=== PATIENT | female | born 1985 | race Caucasian/White ===

== ENCOUNTER 2016-08-22 09:32 | Emergency (ER) | payer OTHER ==
--- NOTE | 2016-08-22 10:35 | ED.PDOC ---
History of Present Illness - General Chief Complaint: Respiratory Problem Time Seen by Provider: 08/22/16 10:28 Source: patient Exam Limitations: no limitations Additional Information: 3 wks NASSAL CONGESTION. BEEN URGENT CARE - STEROID, ABX. FACIAL AND R EAR PAIN. - History of Present Illness Cough Quality/Degree: moderate Possible Cause: illness exposure Improving Factors: nothing Worsening Factors: nothing Allergies/Adverse Reactions: Allergies NO KNOWN ALLERGY Allergy (Verified 04/09/16 20:39) Home Medications: Ambulatory Orders Cephalexin Monohydrate [Keflex] 500 mg PO Q8H #30 cap 04/09/16 predniSONE [Prednisone] 20 mg PO DAILY #3 tab 04/09/16 Amoxicillin & Pot Clavulanate [Augmentin] 875 mg PO BID #20 tab 08/22/16 Methylprednisolone [Medrol Dose Roman] 4 mg PO DAILY #1 tab 08/22/16 Review of Systems - Review of Systems Constitutional: Denies: chills, fever, malaise, weakness EENTM: States: ear pain, nose congestion. Denies: eye pain, ear discharge, throat pain Respiratory: States: cough. Denies: short of breath, wheezing Cardiology: States: no symptoms reported Gastrointestinal/Abdominal: States: no symptoms reported Genitourinary: States: no symptoms reported Musculoskeletal: States: no symptoms reported Skin: States: no symptoms reported Neurological: States: no symptoms reported Endocrine: States: no symptoms reported Hematologic/Lymphatic: States: no symptoms reported All other Systems: Reviewed and Negative Past Medical History (General) - Patient Medical History Hx Seizures: No Hx Stroke: No Hx Dementia: No Hx Asthma: No Hx of COPD: No Hx Cardiac Disorders: No Hx Congestive Heart Failure: No Hx Pacemaker: No Hx Hypertension: No Hx Thyroid Disease: No Hx Diabetes: No Hx Gastroesophageal Reflux: No Hx Renal Disease: No Hx Cancer: No Hx of HIV: No Hx Hepatitis C: No Hx MRSA: No - Vaccination History Hx Tetanus, Diphtheria Vaccination: No Hx Influenza Vaccination: No Hx Pneumococcal Vaccination: No - Social History Hx Tobacco Use: No Hx Chewing Tobacco Use: No Hx Alcohol Use: No Hx Substance Use: No Hx Substance Use Treatment: No Hx Depression: No Hx Physical Abuse: No Hx Emotional Abuse: No Hx Suspected Abuse: No - Female History Patient : No Family Medical History - Family History Mother Family History: No Known Living Status: Still Living Hx Family Hypertension: Yes Physical Exam - Physical Exam General Appearance: Alert, Ill Appearing Eye Exam: bilateral normal ENT Exam: pharynx normal, nasal congestion, TM bulging, TM red Neck: non-tender, full range of motion, supple Respiratory: chest non-tender, lungs clear, normal breath sounds, no respiratory distress Cardiovascular/Chest: normal peripheral pulses, regular rate, rhythm, no JVD, no murmur Gastrointestinal/Abdominal: normal bowel sounds, non tender, soft Extremity: normal range of motion, normal inspection 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 RX'D AUGMENTIN, MEDROL DOSE PACK. 08/22/16 10:49 Departure - Departure Clinical Impression: Otitis media, Rhinitis, Cough Disposition: Discharge to Home or Self Care Condition: Good Departure Forms: ED Discharge - Pt. Copy, Patient Portal Self Enrollment Instructions: Middle Ear Infection Diet: resume usual diet Activity: increase activity as tolerated Prescriptions: Amoxicillin & Pot Clavulanate [Augmentin] 875 mg PO BID #20 tab Methylprednisolone [Medrol Dose Roman] 4 mg PO DAILY #1 tab Home Medications: Ambulatory Orders Cephalexin Monohydrate [Keflex] 500 mg PO Q8H #30 cap 04/09/16 predniSONE [Prednisone] 20 mg PO DAILY #3 tab 04/09/16 Amoxicillin & Pot Clavulanate [Augmentin] 875 mg PO BID #20 tab 08/22/16 Methylprednisolone [Medrol Dose Roman] 4 mg PO DAILY #1 tab 08/22/16 Additional Instructions: our control pill may be less effective so please use a second form of control for the next 10 days while on Augmentin. Please use Michelet Med saline nasal/sinus rinse, then flonase spray. Zinc lozenges may also be helpful. Plenty of rest, fluids, vitamin C, and regular hand washing. I hope you feel better soon.
[2016-08-22] MEDS ORDERED: methylPREDNISolone ACETATE 80 MG/ML VIAL IM ONE (10:45)
[2016-08-22] MEDS ORDERED: cefTRIAXone SODIUM 1 GM VIAL IM ONE (10:45)
[2016-08-22 11:37] VITALS: TEMP 98.6
[2016-08-22 11:51] VITALS: BP 97/64
[2016-08-22 11:53] VITALS: O2SAT 98
== END 2016-08-22 11:45 | disposition home or self-care (01) ==
LOC: ER 09:32
DX: J31.0 Chronic rhinitis (principal); H66.90 Otitis media, unspecified, unspecified ear
CPT/HCPCS: J0696; J1030

== ENCOUNTER 2016-09-20 12:04 | Emergency (ER) | payer OTHER ==
[2016-09-20 13:05] VITALS: TEMP 98.4; O2SAT 97
[2016-09-20] MEDS ORDERED: KETOROLAC TROMETHAMINE INJ 60 MG/2 ML VIAL IM ONE (13:39)
[2016-09-20] MEDS ORDERED: SULFA/TRIMETH 800/160 (DS) TAB 1 EA TAB PO ONE (13:40)
[2016-09-20] MEDS ORDERED: HYDROcodone 10MG/APAP 325MG 1 EA TAB PO ONE (13:40)
--- NOTE | 2016-09-20 14:27 | ED.PDOC ---
History of Present Illness - General Chief Complaint: Skin/Abrasion/Tear Stated Complaint: vaginal cyst Time Seen by Provider: 09/20/16 13:39 Source: patient Exam Limitations: no limitations - History of Present Illness Initial Comments: PT REPORTS A 3 DAY HISTORY OF A PROGRESSIVELY ENLARGING MASS ON HER LEFT LABIA MAJORA. PT DENIES DRAINAGE, HOWEVER REPORTS PAIN. Severity: moderate Location: genitalia Improving Factors: immobilization Worsening Factors: movement Allergies/Adverse Reactions: Allergies NO KNOWN ALLERGY Allergy (Verified 04/09/16 20:39) Home Medications: Ambulatory Orders Cephalexin Monohydrate [Keflex] 500 mg PO Q8H #30 cap 04/09/16 predniSONE [Prednisone] 20 mg PO DAILY #3 tab 04/09/16 Amoxicillin & Pot Clavulanate [Augmentin] 875 mg PO BID #20 tab 08/22/16 Methylprednisolone [Medrol Dose Roman] 4 mg PO DAILY #1 tab 08/22/16 Acetaminophen W/ Codeine [Tylenol W/ CODEINE #3] 1 ea PO Q4HR PRN #24 09/20/16 Ibuprofen 800 mg PO Q8HR PRN #30 tab 09/20/16 Sulfamethoxazole-Trimethoprim [Bactrim Ds 800-160 mg] 2 tab PO BID #14 tab 09/20 Review of Systems - Review of Systems Constitutional: Denies: chills, fever Gastrointestinal/Abdominal: Denies: abdominal pain, nausea, vomiting Genitourinary: States: see HPI, pain. Denies: discharge, dysuria Skin: States: see HPI, lesions, lumps Past Medical History (General) - Patient Medical History Hx Seizures: No Hx Stroke: No Hx Dementia: No Hx Asthma: No Hx of COPD: No Hx Cardiac Disorders: No Hx Congestive Heart Failure: No Hx Pacemaker: No Hx Hypertension: No Hx Thyroid Disease: No Hx Diabetes: No Hx Gastroesophageal Reflux: No Hx Renal Disease: No Hx Cancer: No Hx of HIV: No Hx Hepatitis C: No Hx MRSA: No - Vaccination History Hx Tetanus, Diphtheria Vaccination: No Hx Influenza Vaccination: No Hx Pneumococcal Vaccination: No - Social History Hx Tobacco Use: No Hx Chewing Tobacco Use: No Hx Alcohol Use: No Hx Substance Use: No Hx Substance Use Treatment: No Hx Depression: No Hx Physical Abuse: No Hx Emotional Abuse: No Hx Suspected Abuse: No - Female History Patient : No - Triage Comment ED Triage Comment: Pt states she has a cyst next to her vargina that started 4 days ago and getting worse and more painful Family Medical History - Family History Mother Family History: No Known Living Status: Still Living Hx Family Hypertension: Yes Physical Exam - Physical Exam General Appearance: Alert, No apparent distress Skin Exam: other - TENDER FIRM 1CM X 1CM NODULE LOCATED ON THE UPPER ASPECT OF THE LABIA MAJORA, NO FLUCTUANCE, NO PURULENT DRAINAGE. Progress - Progress Progress: 09/20/16 14:28 PT PRESENTS WITH EARLY BOIL TO LEFT LABIA, NOT CURRENTLY LARGE ENOUGH FOR I&D. WILL PLACE PT ON BACTRIM AND INSTRUCT PT TO RETURN IF MASS CONTINUES TO ENLARGE. Departure - Departure Clinical Impression: Abscess of left genital labia Time of Disposition: 14:30 Disposition: Discharge to Home or Self Care Condition: Good Departure Forms: ED Discharge - Pt. Copy, Patient Portal Self Enrollment Instructions: DI for Boils Diet: resume usual diet Prescriptions: Acetaminophen W/ Codeine [Tylenol W/ CODEINE #3] 1 ea PO Q4HR PRN #24 PRN Reason: Pain Ibuprofen 800 mg PO Q8HR PRN #30 tab PRN Reason: Pain Sulfamethoxazole-Trimethoprim [Bactrim Ds 800-160 mg] 2 tab PO BID #14 tab Home Medications: Ambulatory Orders Cephalexin Monohydrate [Keflex] 500 mg PO Q8H #30 cap 04/09/16 predniSONE [Prednisone] 20 mg PO DAILY #3 tab 04/09/16 Amoxicillin & Pot Clavulanate [Augmentin] 875 mg PO BID #20 tab 08/22/16 Methylprednisolone [Medrol Dose Roman] 4 mg PO DAILY #1 tab 08/22/16 Acetaminophen W/ Codeine [Tylenol W/ CODEINE #3] 1 ea PO Q4HR PRN #24 09/20/16 Ibuprofen 800 mg PO Q8HR PRN #30 tab 09/20/16 Sulfamethoxazole-Trimethoprim [Bactrim Ds 800-160 mg] 2 tab PO BID #14 tab 09/20
[2016-09-20 14:45] VITALS: BP 103/71
== END 2016-09-20 14:45 | disposition home or self-care (01) ==
LOC: ER 12:04
DX: N76.4 Abscess of vulva (principal)

== ENCOUNTER 2016-12-10 19:59 | Emergency (ER) | payer OTHER ==
[2016-12-10] MEDS ORDERED: IPRATROPIUM/ALBUTEROL 3 ML VIAL NEB ONE (20:27)
[2016-12-10 20:37] VITALS: TEMP 99.4
--- NOTE | 2016-12-10 21:02 | RAD ---
2-VIEW CHEST X-RAY. DATE: 12/10/2016 8:28 PM CDT INDICATION: Right lower pleurisy TECHNIQUE: Frontal and lateral views of the chest were performed. COMPARISON:None FINDINGS: There are increased bilateral perihilar interstitial opacities with tiny alveolar opacities. No pneumothorax effusions. No focal airspace disease. The cardiomediastinal silhouette is within normal limits. The osseous structure show no significant finding. The visualized abdomen is unremarkable. IMPRESSION: Increased interstitial opacities with very small alveolar opacities may represent an infectious process or other etiologies such as sarcoidosis. Recommend follow-up with chest x-ray and/or correlation with CT chest. Electronically signed by: Fletcher Olivia MD 12/10/2016 9:02 PM CDT
[2016-12-10 21:40] VITALS: BP 119/77
--- NOTE | 2016-12-10 21:50 | ED.PDOC ---
History of Present Illness - General Chief Complaint: Abdominal Pain Stated Complaint: rib pain to rt side Time Seen by Provider: 12/10/16 20:00 Source: patient Exam Limitations: no limitations - History of Present Illness Initial Comments: the patient is a 31-year-old female presenting to the emergency room secondary to the acute onset of pleuritic pain to the right lower lung field approximately 2-1/2 hours prior to arrival. She has had several episodes of pleurisy secondary to a rib fracture in that area in the past. However in the past the episodes were much more brief only lasting a minute or 2. She was feeling fine before. She is not having any productive cough. No fever. No chest pain elsewhere. No real shortness of breath. Timing/Duration: 1-3 hours Severity: moderate Improving Factors: nothing Worsening Factors: movement Associated Symptoms: denies symptoms Allergies/Adverse Reactions: Allergies NO KNOWN ALLERGY Allergy (Verified 12/10/16 20:38) Home Medications: Ambulatory Orders Fexofenadine-Pseudoephedrine [Isi-D 12 Hour Allergy 60-120 mg] 1 tab PO PRN 12/10/16 Review of Systems - Review of Systems Constitutional: States: no symptoms reported EENTM: States: no symptoms reported Respiratory: States: no symptoms reported Cardiology: States: chest pain Gastrointestinal/Abdominal: States: no symptoms reported Genitourinary: States: no symptoms reported Musculoskeletal: States: no symptoms reported Skin: States: no symptoms reported Neurological: States: no symptoms reported Endocrine: States: no symptoms reported All other Systems: No Change from Baseline Past Medical History (General) - Patient Medical History Hx Seizures: No Hx Stroke: No Hx Dementia: No Hx Asthma: No Hx of COPD: No Hx Cardiac Disorders: No Hx Congestive Heart Failure: No Hx Pacemaker: No Hx Hypertension: No Hx Thyroid Disease: No Hx Diabetes: No Hx Gastroesophageal Reflux: No Hx Renal Disease: No Hx Cancer: No Hx of HIV: No Hx Hepatitis C: No Hx MRSA: No Surgical History: other - Vaccination History Hx Tetanus, Diphtheria Vaccination: Yes - 2013 Hx Influenza Vaccination: No Hx Pneumococcal Vaccination: No - Social History Hx Tobacco Use: No Hx Chewing Tobacco Use: No Hx Alcohol Use: No Hx Substance Use: No Hx Substance Use Treatment: No Hx Depression: No Hx Physical Abuse: No Hx Emotional Abuse: No Hx Suspected Abuse: No - Female History Patient : No Family Medical History - Family History Mother Family History: No Known Living Status: Still Living Hx Family Hypertension: Yes Physical Exam - Physical Exam General Appearance: Alert, No apparent distress Eye Exam: bilateral normal Ears, Nose, Throat: normal ENT inspection, normal pharynx Neck: non-tender, full range of motion, supple Respiratory: chest non-tender, lungs clear, normal breath sounds, no respiratory distress, no accessory muscle use Cardiovascular/Chest: normal peripheral pulses, regular rate, rhythm, no edema Peripheral Pulses: radial,right: 2+, radial,left: 2+ Gastrointestinal/Abdominal: non tender, soft Rectal Exam: deferred Back Exam: normal inspection, no CVA tenderness, no vertebral tenderness Extremity: normal range of motion, non-tender, normal inspection, no pedal edema , normal capillary refill Neurologic: alert, normal mood/affect, oriented x 3 Skin Exam: normal color Comments: Vital Signs - 24 hr 12/10/16 12/10/16 12/10/16 20:30 20:39 21:38 Temperature 99.4 F Pulse Rate [ 110 H 103 H left] Respiratory 18 20 20 Rate Blood Pressure 111/79 119/77 [left] O2 Sat by Pulse 97 96 Oximetry Progress - Progress Progress: 12/10/16 21:49 the patient is a 31-year-old female presenting to the emergency room secondary to pleuritic chest pain on the right. It has been present for several hours upon arrival. The patient received a breathing treatment and the pain relieved shortly after. The patient needs to do deep breathing exercises while on her daily commute to help prevent further episodes. She can use an incentive spirometer if she wishes. Chest x-ray did not show any evidence of any large pneumonia, pneumothorax or fluid overload however it did show some small interstitial changes. It is recommended that she have another repeat chest x-ray in 1-2 months. ER warnings were given for any acute worsening. Departure - Departure Clinical Impression: Pleurisy Disposition: Discharge to Home or Self Care Condition: Good Departure Forms: ED Discharge - Pt. Copy, Patient Portal Self Enrollment Instructions: DI for Pleurisy Diet: regular diet Activity: increase activity as tolerated Home Medications: Ambulatory Orders Fexofenadine-Pseudoephedrine [Isi-D 12 Hour Allergy 60-120 mg] 1 tab PO PRN 12/10/16 Additional Instructions: the patient is a 31-year-old female presenting to the emergency room secondary to pleuritic chest pain on the right. It has been present for several hours upon arrival. The patient received a breathing treatment and the pain relieved shortly after. The patient needs to do deep breathing exercises while on her daily commute to help prevent further episodes. She can use an incentive spirometer if she wishes. Chest x-ray did not show any evidence of any large pneumonia, pneumothorax or fluid overload however it did show some small interstitial changes. It is recommended that she have another repeat chest x-ray in 1-2 months. ER warnings were given for any acute worsening.
[2016-12-11 00:16] VITALS: O2SAT 98
== END 2016-12-10 22:03 | disposition home or self-care (01) ==
LOC: ER 19:59
DX: R09.1 Pleurisy (principal)
CPT/HCPCS: 71020; 94640; J7620

== ENCOUNTER 2016-12-16 04:44 | Emergency (ER) | payer OTHER ==
[2016-12-16 05:00] VITALS: TEMP 98
--- NOTE | 2016-12-16 05:35 | ED.PDOC ---
History of Present Illness - General Source: patient Exam Limitations: no limitations Additional Information: R LOWER THORAX PAIN. ONSET LAST PM. SPONTANEOUS. SHARP, NON RADIATING. HAS HAD ONE TIME BEFORE. NO TRAUMA - History of Present Illness Timing/Duration: other - LAST PM Severity: moderate Improving Factors: nothing Worsening Factors: other - DEEP BREATHING <Jame Verduzco - Last Filed: 12/16/16 07:00> <Brett Cr - Last Filed: 12/16/16 07:34> - General Chief Complaint: General Stated Complaint: right side "pleurisy" pain Time Seen by Provider: 12/16/16 05:27 - History of Present Illness Allergies/Adverse Reactions: Allergies NO KNOWN ALLERGY Allergy (Verified 12/16/16 05:00) Home Medications: Ambulatory Orders Fexofenadine-Pseudoephedrine [Isi-D 12 Hour Allergy 60-120 mg] 1 tab PO PRN 12/10/16 Ibuprofen 800 mg PO TID PRN #30 tab 12/16/16 Review of Systems - Review of Systems Constitutional: Denies: chills, fever EENTM: States: no symptoms reported Respiratory: States: short of breath. Denies: cough, orthopnea, stridor, wheezing Cardiology: States: chest pain. Denies: palpitations, syncope Gastrointestinal/Abdominal: Denies: abdominal pain, nausea, vomiting Genitourinary: States: no symptoms reported Musculoskeletal: Denies: back pain, neck pain Skin: States: no symptoms reported Neurological: States: no symptoms reported Hematologic/Lymphatic: States: no symptoms reported <Jame Verduzco - Last Filed: 12/16/16 07:00> Past Medical History (General) - Patient Medical History Hx Seizures: No Hx Stroke: No Hx Dementia: No Hx Asthma: No Hx of COPD: No Hx Cardiac Disorders: No Hx Congestive Heart Failure: No Hx Pacemaker: No Hx Hypertension: No Hx Thyroid Disease: No Hx Diabetes: No Hx Gastroesophageal Reflux: No Hx Renal Disease: No Hx Cancer: No Hx of HIV: No Hx Hepatitis C: No Hx MRSA: No Surgical History: other - Vaccination History Hx Tetanus, Diphtheria Vaccination: Yes - 2013 Hx Influenza Vaccination: No Hx Pneumococcal Vaccination: No Immunizations Up to Date: Yes - Social History Hx Tobacco Use: No Hx Chewing Tobacco Use: No Hx Alcohol Use: No Hx Substance Use: No Hx Substance Use Treatment: No Hx Depression: No Feels Threatened In Home Enviroment: No Feels Threatened In a Relationship: No Hx Physical Abuse: No Hx Emotional Abuse: No Hx Suspected Abuse: No - Female History Patient is a Female of Child Bearing Age (10 -59 yrs old): Yes Patient : No <Jame Verduzco - Last Filed: 12/16/16 07:00> Family Medical History - Family History Mother Family History: No Known Living Status: Still Living Hx Family Hypertension: Yes <Jame Verduzco - Last Filed: 12/16/16 07:00> Physical Exam - Physical Exam General Appearance: Well Developed, Well Nourished, Other - OBESE, MILD TO MOD DISTRESS Eye Exam: bilateral normal Ears, Nose, Throat: hearing grossly normal, normal ENT inspection Neck: non-tender, supple Respiratory: lungs clear, normal breath sounds, other - TACHYPNIC Cardiovascular/Chest: no murmur, tachycardia Gastrointestinal/Abdominal: normal bowel sounds, non tender, soft, no organomegaly Back Exam: normal inspection, no vertebral tenderness Extremity: normal range of motion, non-tender, normal inspection Neurologic: alert, normal mood/affect Skin Exam: normal color, warm/dry Lymphatic: no adenopathy <Jame Verduzco - Last Filed: 12/16/16 07:00> Progress - EKG/XRAY/CT EKG: Sinus - RATE 100, NL AXIS, NL INTERVALS, NO ST-T WAVE CHANGES, NAIP, NO S1, Q3,T3 <Jame Verduzco - Last Filed: 12/16/16 07:00> - Results/Orders Results/Orders: D-DIMER WAS ELEVATED BUT CTA NEG FOR PE. NO INFECTIOUS CONSOLIDATION. TINY PLEURAL EFFUSIONS. DX CONFIRMED PLEURISY. EKG NSR. CBC AND CMP UNREMARKABLE. <Brett Cr - Last Filed: 12/16/16 07:34> Departure <Jame Verduzco - Last Filed: 12/16/16 07:00> - Departure Diet: resume usual diet Activity: walking as tolerated <Brett Cr - Last Filed: 12/16/16 07:34> - Departure Clinical Impression: Pleurisy with effusion Disposition: Discharge to Home or Self Care Condition: Good Departure Forms: ED Discharge - Pt. Copy, Patient Portal Self Enrollment Instructions: DI for Pleurisy Prescriptions: Ibuprofen 800 mg PO TID PRN #30 tab PRN Reason: Chest Pain Home Medications: Ambulatory Orders Fexofenadine-Pseudoephedrine [Isi-D 12 Hour Allergy 60-120 mg] 1 tab PO PRN 12/10/16 Ibuprofen 800 mg PO TID PRN #30 tab 12/16/16 Additional Instructions: Please follow-up with your regular doctor if the discomfort is persisting despite taking the high dose ibuprofen.
[2016-12-16] MEDS ORDERED: KETOROLAC TROMETHAMINE INJ 30 MG/ML VIAL IV ONE (05:43)
--- NOTE | 2016-12-16 07:12 | CT ---
Procedure: CT CHEST ANGIOGRAPHY WITH IV CONTRAST Exam Date: 12/16/2016 Ordering Provider: Jame Verduzco Clinical Indication: Chest pain TACHYCARDIC ELEVATED D DIMER Comparison: None Technique: Using a multislice scanner, sequential axial imaging was obtained in the thorax from the level of the thoracic inlet through the lung bases after intravenous contrast administration. The contrast bolus was timed to evaluate the pulmonary arteries for thrombus. MIP coronal and sagittal reformatted images were obtained. This exam was performed according to our departmental dose optimization program which includes use of automated exposure control, adjustment of the mA and/or kV according to patient size and/or use of iterative reconstruction technique. Findings: Exam is limited by respiratory motion artifact. Within these confines, there are no emboli in the main or lobar pulmonary arteries. The segmental and subsegmental pulmonary arteries are not adequately evaluated. Lungs and large airways: Central airways are patent. There is mild atelectasis in the dependent lower lobes. No focal lung consolidation. Mediastinum and claudio: No lymphadenopathy Pleura: Tiny bilateral pleural effusions. No pneumothorax. Heart and great vessels: Heart is not enlarged. No pericardial effusion. No aortic aneurysm or dissection. Chest wall, lower neck, axillae: No axillary lymphadenopathy. Upper abdomen: No acute abnormalities in the visualized upper abdomen. Bones: Nonacute IMPRESSION: 1. Exam is limited by respiratory motion artifact. Within these confines, there are no emboli in the main or lobar pulmonary arteries. The segmental and subsegmental pulmonary arteries are not adequately evaluated. 2. No evidence of aortic dissection or aneurysm. 3. Tiny bilateral pleural effusions. Electronically signed by: Ronnie Tomlinson MD 12/16/2016 7:11 AM CDT
[2016-12-16 07:56] VITALS: BP 97/65; O2SAT 95
== END 2016-12-16 07:40 | disposition home or self-care (01) ==
LOC: ER 04:44
DX: J90 Pleural effusion, not elsewhere classified (principal)
CPT/HCPCS: 36415; 71275; 80053; 85025; 85379; 93005; J1885

== ENCOUNTER 2017-02-07 20:34 | Emergency (ER) | payer OTHER ==
[2017-02-07 20:46] VITALS: BP 129/81; TEMP 99.1; O2SAT 98
--- NOTE | 2017-02-07 21:06 | ED.PDOC ---
History of Present Illness - General Chief Complaint: Bite: Animal/Insect/Human Stated Complaint: possible insect bite to lower rt leg Time Seen by Provider: 02/07/17 21:00 Source: patient, RN notes reviewed, Vital Signs reviewed Exam Limitations: no limitations - History of Present Illness Initial Comments: Patient with an itchy insect bite on her R lower leg. Today she noticed areas of redness beside the bite. No pain or warmth. Timing/Duration: changing over time - over past few days Severity: mild Improving Factors: nothing - She has not tried any medication or OTC anti-itch creams at home Worsening Factors: nothing Associated Symptoms: rash Allergies/Adverse Reactions: Allergies NO KNOWN ALLERGY Allergy (Verified 12/16/16 05:00) Home Medications: Ambulatory Orders Fexofenadine-Pseudoephedrine [Isi-D 12 Hour Allergy 60-120 mg] 1 tab PO PRN 12/10/16 Ibuprofen 800 mg PO TID PRN #30 tab 12/16/16 Review of Systems - Review of Systems Constitutional: States: no symptoms reported Respiratory: States: no symptoms reported Cardiology: States: no symptoms reported Musculoskeletal: States: no symptoms reported Skin: States: see HPI Neurological: States: no symptoms reported All other Systems: No Change from Baseline Past Medical History (General) - Patient Medical History Hx Seizures: No Hx Stroke: No Hx Dementia: No Hx Asthma: No Hx of COPD: No Hx Cardiac Disorders: No Hx Congestive Heart Failure: No Hx Pacemaker: No Hx Hypertension: No Hx Thyroid Disease: No Hx Diabetes: Yes - gestational Hx Gastroesophageal Reflux: No Hx Renal Disease: No Hx Cancer: No Hx of HIV: No Hx Hepatitis C: No Hx MRSA: No - Vaccination History Hx Tetanus, Diphtheria Vaccination: Yes Hx Influenza Vaccination: No Hx Pneumococcal Vaccination: No - Social History Hx Tobacco Use: No Hx Chewing Tobacco Use: No Hx Alcohol Use: No Hx Substance Use: No Hx Substance Use Treatment: No Hx Depression: No Hx Physical Abuse: No Hx Emotional Abuse: No Hx Suspected Abuse: No - Female History Patient is a Female of Child Bearing Age (10 -59 yrs old): Yes Patient : No Family Medical History - Family History Mother Family History: No Known Living Status: Still Living Hx Family Hypertension: Yes Physical Exam - Physical Exam General Appearance: Alert, Comfortable, No apparent distress, Well Developed, Well Groomed, Well Hydrated, Well Nourished Respiratory: no respiratory distress Extremity: normal range of motion, non-tender, no pedal edema, no calf tenderness Neurologic: alert, normal mood/affect, oriented x 3 Skin Exam: normal color - except R lower leg: small area of erythema, ~1cm with central scab. No induration, fluctuance or tenderness. On each side are linear areas of petechia that appear to be caused by trauma., warm/dry Departure - Departure Clinical Impression: Traumatic petechiae Time of Disposition: 21:08 Disposition: Discharge to Home or Self Care Condition: Good Departure Forms: ED Discharge - Pt. Copy, Patient Portal Self Enrollment Instructions: DI for Insect Bites and Stings Diet: resume usual diet Activity: increase activity as tolerated Referrals: Ozzie Aparicio MD [Primary Care Provider] - 1-2 Weeks Home Medications: Ambulatory Orders Fexofenadine-Pseudoephedrine [Isi-D 12 Hour Allergy 60-120 mg] 1 tab PO PRN 12/10/16 Ibuprofen 800 mg PO TID PRN #30 tab 12/16/16 Additional Instructions: OTC Zyrtec &/or Benadryl OTC anti-itch creams Ice area Stop scratching
== END 2017-02-07 21:13 | disposition home or self-care (01) ==
LOC: ER 20:34
DX: R23.3 Spontaneous ecchymoses (principal); Z86.32 Personal history of gestational diabetes

== ENCOUNTER → 2017-02-24 | Outpatient (CLI) | payer OTHER | END | disposition home or self-care (01) | LOC: GMA 11:11 | PROVIDERS: ATTEND Nurse Practitioner Acute Care | DX: M25.50 Pain in unspecified joint (principal) ==

== ENCOUNTER → 2017-03-10 | Outpatient (CLI) | payer OTHER | END | disposition home or self-care (01) | LOC: GMAJ 10:45 | PROVIDERS: ATTEND Family Medicine | DX: M25.50 Pain in unspecified joint (principal) ==

== ENCOUNTER → 2017-03-24 | Outpatient (CLI) | payer OTHER ==
--- NOTE | 2017-03-25 13:08 | MAM ---
EXAM DESCRIPTION: 3D Screening BILATERAL CLINICAL HISTORY: 31 yearsFemaleSCREENING. No complaints. Maternal grandmother and aunts with breast cancer. Premenopausal.. COMPARISON: Baseline study at this facility.. No prior reports available. TECHNIQUE: Bilateral CC and MLO projection full-field images, 3-D tomosynthesis digital mammographic technique. Also bilateral synthesized CC/ MLO full-field images. CAD not utilized. FINDINGS: The breast parenchymal density pattern is: Heterogeneously dense breast tissue, which may obscure small masses. No skin thickening or nipple retraction right breast axillary lymph nodes. Focal asymmetry in the posterior third of the left breast upper inner quadrant at the 1100 clock position, approximately 6.3 cm from the nipple.. No focal, stellate mass or density, , and no suspicious microcalcifications bilaterally. No focal asymmetry in the right breast. IMPRESSION: BI-RADS CATEGORY: 0 - INCOMPLETE- Need additional imaging evaluation. FOLLOW-UP: Recall for additional imaging: Targeted left breast ultrasound of the region of interest described in the findings. Written communication explaining the results and follow-up will be mailed to the patient and referring care provider. Electronically signed by: Jacky Durbin MD 03/25/2017 1:06 PM CDT
== END | disposition home or self-care (01) ==
LOC: MAMMO 07:59
PROVIDERS: ATTEND Family Medicine
DX: Z12.31 Encounter for screening mammogram for malignant neoplasm of breast (principal)
CPT/HCPCS: 77063; G0202

== ENCOUNTER → 2017-04-28 | Outpatient (CLI) | payer OTHER ==
--- NOTE | 2017-04-28 09:59 | US ---
EXAM DESCRIPTION: Breast,Left CLINICAL HISTORY: 32 [id number] COMPARISON: Digital 3-D screening tomosynthesis bilateral breasts 03/24/2017. TECHNIQUE: Transcutaneous scanning of the upper inner quadrant of the left breast utilizing two-dimensional and Doppler modes. Scanning performed by the petrography teacher and Dr. Durbin. FINDINGS: Well circumscribed hypoechoic mass with central echogenicity at the 1100 clock position of the left breast 6 cm from the nipple. Dimensions are 9.3 x 4.6 x 3.1 mm. No significant central vascularity. Parallel orientation and no posterior acoustic features. Consistent with a lymph node. Anechoic structure in a similar location with parallel orientation. Dimensions are 5.3 x 5.6 mm. Posterior acoustic enhancement. Nonvascular. Consistent with a cyst. No discrete solid mass or abnormal posterior acoustic attenuation. IMPRESSION: BI-RADS CATEGORY: 2 - BENIGN FINDINGS. FOLLOW UP: Return to routine digital bilateral mammographic screening, at age 40. The findings and the follow-up plan were reviewed in person with the patient after the examination. Written communication explaining the IMPRESSION and follow-up, will be mailed to the patient and referring health care provider. According to the [employer], yearly mammograms are recommended starting at age 40 and continuing as long as a woman is in good health. Any breast change noted on a breast self-exam should be reported promptly to the patient's healthcare provider. Breast MRI is recommended for women with an approximately 20-25% or greater lifetime risk of breast cancer, including women with a strong family history of breast or ovarian cancer and women who have been treated for Hodgkin's disease. A negative mammographic report should not delay tissue diagnosis in patients with significant clinical history or physical findings. Extremely dense breast tissue limits the sensitivity of digital mammography. Electronically signed by: Jacky Durbin MD 04/28/2017 9:58 AM CDT
== END | disposition home or self-care (01) ==
LOC: US 08:23
PROVIDERS: ATTEND Family Medicine
DX: R92.8 Other abnormal and inconclusive findings on diagnostic imaging of breast (principal); Z80.3 Family history of malignant neoplasm of breast

== ENCOUNTER 2018-04-27 22:57 | Emergency (ER) | payer OTHER ==
--- NOTE | 2018-04-27 23:35 | RAD ---
EXAM: Single view chest. INDICATION: Syncope. COMPARISON: Chest x-ray: 12/10/2016. FINDINGS: Cardiac silhouette: Unremarkable. Vero: Unremarkable. Lobar consolidation: None. Pleural effusion: None. Pneumothorax: None. Other: None. Bones: Unremarkable. Other: None. IMPRESSION: 1. No acute cardiopulmonary process. Electronically signed by: Trev Schulz MD 04/27/2018 11:34 PM CDT Workstation: [id number]
[2018-04-27 23:59] VITALS: O2SAT 100
--- NOTE | 2018-04-28 01:36 | ED.PDOC ---
History of Present Illness - General Chief Complaint: Syncope/Near Syncope Stated Complaint: fainted in shower Time Seen by Provider: 04/27/18 23:04 Source: patient, family Exam Limitations: no limitations - History of Present Illness Initial Comments: the patient is a 33-year-old female presenting to emergenncy room with her after having a syncopal episode after being in the shower for almost 30 minutes. She has not had a syncopal episode in a long time. She did feel like she was going to pass out beforehand. No evidence of any seizure activity. No recent health problems. She is feeling fine currently. She was unconscious for less than a minute. No injury. The patient is pleasant and cooperative. is here to corroborate the story. Timing/Duration: momentarily Severity: moderate Improving Factors: nothing Worsening Factors: nothing Associated Symptoms: denies symptoms Allergies/Adverse Reactions: Allergies NO KNOWN ALLERGY Allergy (Verified 04/27/18 23:05) Home Medications: Ambulatory Orders Ibuprofen 400 mg PO Q6HR PRN 04/27/18 Review of Systems - Review of Systems Constitutional: States: malaise EENTM: States: no symptoms reported Respiratory: States: no symptoms reported Cardiology: States: syncope Gastrointestinal/Abdominal: States: no symptoms reported Genitourinary: States: no symptoms reported Musculoskeletal: States: no symptoms reported Skin: States: no symptoms reported Neurological: States: no symptoms reported Endocrine: States: no symptoms reported All other Systems: No Change from Baseline Past Medical History (General) - Patient Medical History Hx Seizures: No Hx Stroke: No Hx Dementia: No Hx Asthma: No Hx of COPD: No Hx Cardiac Disorders: No Hx Congestive Heart Failure: No Hx Pacemaker: No Hx Hypertension: No Hx Thyroid Disease: No Hx Diabetes: Yes - gestational Hx Gastroesophageal Reflux: No Hx Renal Disease: No Hx Cancer: No Hx of HIV: No Hx Hepatitis C: No Hx MRSA: No Surgical History: other - Vaccination History Hx Tetanus, Diphtheria Vaccination: Yes Hx Influenza Vaccination: No Hx Pneumococcal Vaccination: No Immunizations Up to Date: No - Social History Hx Tobacco Use: No Hx Chewing Tobacco Use: No Hx Alcohol Use: No Hx Substance Use: No Hx Substance Use Treatment: No Hx Depression: No Feels Threatened In Home Enviroment: No Feels Threatened In a Relationship: No Hx Physical Abuse: No Hx Emotional Abuse: No Hx Suspected Abuse: No - Female History Patient is a Female of Child Bearing Age (10 -59 yrs old): Yes Patient : No - has had tubal ligation - Triage Comment ED Triage Comment: pt AAOX4, pale Family Medical History - Family History Mother Family History: No Known Living Status: Still Living Hx Family Hypertension: Yes Physical Exam - Physical Exam General Appearance: Alert, Comfortable, No apparent distress Eye Exam: bilateral normal Ears, Nose, Throat: hearing grossly normal, normal ENT inspection, normal pharynx Neck: full range of motion, supple, normal inspection Respiratory: lungs clear, normal breath sounds, no respiratory distress, no accessory muscle use Cardiovascular/Chest: normal peripheral pulses, regular rate, rhythm, no edema Peripheral Pulses: radial,right: 2+, radial,left: 2+, dorsalis pedis,right: 2+, dorsalis pedis,left: 2+ Gastrointestinal/Abdominal: non tender, soft Rectal Exam: deferred Back Exam: no CVA tenderness, no vertebral tenderness Extremity: normal range of motion, non-tender, normal inspection, no pedal edema , normal capillary refill 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, alert, normal mood/affect, oriented x 3 Skin Exam: normal color Comments: Vital Signs - 8 hr 04/27/18 04/27/18 04/27/18 23:05 23:10 23:57 Temperature 99.5 F Pulse Rate [ 98 H 88 83 pulse ox] Respiratory 18 18 18 Rate Blood Pressure 126/71 102/62 [left arm] O2 Sat by Pulse 99 99 Oximetry 04/27/18 04/27/18 23:58 23:59 Temperature Pulse Rate [ 86 86 pulse ox] Respiratory 18 18 Rate Blood Pressure 102/57 104/48 [left arm] O2 Sat by Pulse 100 100 Oximetry Progress - Progress Progress: 04/28/18 01:35 The patient is a 33-year-old female presenting after an episode of what is most likely vasovagal syncope. She is mildly dehydrated and does need to increase her fluid intake over the next few days. Laboratory work along with x-ray and telemetry are reassuring. Keep routine follow-up with primary care doctor otherwise. Return to the emergency room for any worsening or significant recurrence. - Results/Orders Results/Orders: 04/27/18 23:16 Telemetry .CONTINUOUS Vital Signs-Tilt PRN B-TYPE NATRIURETIC PEPTIDE/BNP Stat CARDIAC ENZYME GROUP Stat COMPLETE METABOLIC PROFILE Stat MAGNESIUM Stat THYROID STIMULATING HORMONE Stat Laboratory Results - last 24 hr 04/27/18 04/27/18 04/27/18 23:16 23:17 23:17 WBC 9.2 RBC 4.54 Hgb 11.9 L Hct 36.9 MCV 81.3 MCH 26.2 L MCHC 32.2 L RDW 13.3 Plt Count 265 MPV 8.7 Absolute Neuts (auto) 7.50 H Absolute Lymphs (auto) 1.00 Absolute Monos (auto) 0.50 Absolute Eos (auto) 0.20 Absolute Basos (auto) 0.10 Neutrophils % 80.8 H Lymphocytes % 10.8 L Monocytes % 5.5 Eosinophils % 2.2 Basophils % 0.7 Sodium 138 Potassium 3.7 Chloride 106 Carbon Dioxide 24 Anion Gap 11.7 L BUN 10 Creatinine 0.94 BUN/Creatinine Ratio 10.6 Random Glucose 107 H Serum Osmolality 275.2 Calcium 9.1 Magnesium 1.8 Total Bilirubin 0.3 AST 14 ALT 9 L Alkaline Phosphatase 60 Creatine Kinase 39 CK-MB (CK-2) 0.5 CK-MB (CK-2) % Not Reportable Troponin I < 0.02 Serum Total Protein 7.2 Albumin 3.3 Globulin 3.9 H Albumin/Globulin Ratio 0.8 L TSH 5.33 Urine Color Urine Appearance Urine pH Ur Specific Railroad Urine Protein Urine Glucose (UA) Urine Ketones Urine Blood Urine Nitrite Urine Bilirubin Urine Urobilinogen Ur Leukocyte Esterase Urine RBC Urine WBC Ur Epithelial Cells Urine Bacteria Urine Mucus Urine HCG, Qual Negative 04/27/18 23:32 WBC RBC Hgb Hct MCV MCH MCHC RDW Plt Count MPV Absolute Neuts (auto) Absolute Lymphs (auto) Absolute Monos (auto) Absolute Eos (auto) Absolute Basos (auto) Neutrophils % Lymphocytes % Monocytes % Eosinophils % Basophils % Sodium Potassium Chloride Carbon Dioxide Anion Gap BUN Creatinine BUN/Creatinine Ratio Random Glucose Serum Osmolality Calcium Magnesium Total Bilirubin AST ALT Alkaline Phosphatase Creatine Kinase CK-MB (CK-2) CK-MB (CK-2) % Troponin I Serum Total Protein Albumin Globulin Albumin/Globulin Ratio TSH Urine Color Yellow Urine Appearance Clear Urine pH 5.5 Ur Specific [place] >= 1.030 Urine Protein 100 H Urine Glucose (UA) Negative Urine Ketones Trace Urine Blood Large H Urine Nitrite Negative Urine Bilirubin Negative Urine Urobilinogen 1.0 Ur Leukocyte Esterase Negative Urine RBC 20-30 H Urine WBC 3-5 H Ur Epithelial Cells 5-10 Urine Bacteria 1+ Urine Mucus Small Urine HCG, Qual urinalysis is performed with the patient coming off of her period chest x-ray shows no evidence of significant infiltrate or congestive heart failure. Telemetry shows normal sinus rhythm with occasional PACs. Tilt vital signs are negative. - EKG/XRAY/CT CT Ordered: No Departure - Departure Clinical Impression: Syncope Qualifiers: Syncope type: vasovagal syncope Qualified Code(s): R55 - Syncope and collapse Disposition: Discharge to Home or Self Care Condition: Fair Departure Forms: ED Discharge - Pt. Copy, Patient Portal Self Enrollment Instructions: DI for Syncope in Adults (Fainting) Diet: regular diet Activity: increase activity as tolerated Referrals: Delmi Redd NP [Primary Care Provider] - 1-2 Weeks Home Medications: Ambulatory Orders Ibuprofen 400 mg PO Q6HR PRN 04/27/18 Additional Instructions: The patient is a 33-year-old female presenting after an episode of what is most likely vasovagal syncope. She is mildly dehydrated and does need to increase her fluid intake over the next few days. Laboratory work along with x-ray and telemetry are reassuring. Keep routine follow-up with primary care doctor otherwise. Return to the emergency room for any worsening or significant recurrence.
[2018-04-28 01:52] VITALS: BP 111/58; TEMP 98
== END 2018-04-28 01:52 | disposition home or self-care (01) ==
LOC: ER 22:57
DX: R55 Syncope and collapse (principal); R53.81 Other malaise; I49.1 Atrial premature depolarization

== ENCOUNTER 2018-05-25 19:30 | Inpatient (IN) | payer SELFPAY ==
[2018-05-25] MEDS ORDERED: SODIUM CHLORIDE 0.9% 1000ML 1,000 ML IVS ONE ×2 (19:44→21:48)
[2018-05-25] MEDS ORDERED: MORPHINE SULFATE INJ 10 MG/ML VIAL IV ONE (19:44)
[2018-05-25] MEDS ORDERED: ONDANSETRON INJ 4 MG/2 ML VIAL IV ONE (19:44)
--- NOTE | 2018-05-25 19:44 | ED.PDOC ---
History of Present Illness - General Time Seen by Provider: 05/25/18 19:42 Additional Information: 33 YEAR OLD HERE FOR EVALUATION OF VOMITING DIARRHEA ABDOMINAL PAIN SINCE YESTERDAY SHE HAS NO BLOOD OR MUCOUS IN THE EMESIS OR STOOL SHE WAS SEEN AT HER PCP OFFICE YESTERDAY GIVEN A SHOT WAS OK FOR FEW HOURS THEN THE SYMPTOMS STARTED AGAIN - History of Present Illness Timing/Duration: 24 hours Severity: moderate Improving Factors: nothing Worsening Factors: nothing Associated Symptoms: loss of appetite, nausea/vomiting, weakness Allergies/Adverse Reactions: Allergies NO KNOWN ALLERGY Allergy (Verified 04/27/18 23:05) Home Medications: Ambulatory Orders Ibuprofen 400 mg PO Q6HR PRN 04/27/18 Review of Systems - Review of Systems Constitutional: States: no symptoms reported EENTM: States: no symptoms reported Respiratory: States: no symptoms reported Cardiology: States: no symptoms reported Gastrointestinal/Abdominal: States: no symptoms reported Genitourinary: States: no symptoms reported Musculoskeletal: States: no symptoms reported Skin: States: no symptoms reported Neurological: States: no symptoms reported Endocrine: States: no symptoms reported Hematologic/Lymphatic: States: no symptoms reported Past Medical History (General) - Patient Medical History Hx Seizures: No Hx Stroke: No Hx Dementia: No Hx Asthma: No Hx of COPD: No Hx Cardiac Disorders: No Hx Congestive Heart Failure: No Hx Pacemaker: No Hx Hypertension: No Hx Thyroid Disease: No Hx Diabetes: Yes - gestational Hx Gastroesophageal Reflux: No Hx Renal Disease: No Hx Cancer: No Hx of HIV: No Hx Hepatitis C: No Hx MRSA: No - Vaccination History Hx Tetanus, Diphtheria Vaccination: Yes Hx Influenza Vaccination: No Hx Pneumococcal Vaccination: No - Social History Hx Tobacco Use: No Hx Chewing Tobacco Use: No Hx Alcohol Use: No Hx Substance Use: No Hx Substance Use Treatment: No Hx Depression: No Hx Physical Abuse: No Hx Emotional Abuse: No Hx Suspected Abuse: No - Female History Patient : No - has had tubal ligation Family Medical History - Family History Mother Family History: No Known Living Status: Still Living Hx Family Hypertension: Yes Physical Exam - Physical Exam General Appearance: Alert, Comfortable Ears, Nose, Throat: hearing grossly normal, normal ENT inspection, normal pharynx Neck: non-tender, full range of motion, supple Respiratory: lungs clear, normal breath sounds, no respiratory distress, no accessory muscle use Cardiovascular/Chest: regular rate, rhythm, no edema, no gallop, no JVD Gastrointestinal/Abdominal: no organomegaly, tenderness 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, no motor/sensory deficits, alert, normal mood/affect Skin Exam: normal color, warm/dry Progress - Results/Orders Results/Orders: Laboratory Tests 05/25/18 05/25/18 05/25/18 20:10 20:10 20:15 WBC 8.2 RBC 4.25 Hgb 10.8 L Hct 33.5 L MCV 78.8 L MCH 25.4 L MCHC 32.2 L RDW 13.3 Plt Count 369 MPV 8.3 Absolute Neuts (auto) 6.60 Absolute Lymphs (auto) 0.80 L Absolute Monos (auto) 0.60 Absolute Eos (auto) 0.20 Absolute Basos (auto) 0.10 Neutrophils % 79.7 H Lymphocytes % 10.2 L Monocytes % 7.5 Eosinophils % 2.0 Basophils % 0.6 Sodium 137 Potassium 3.7 Chloride 102 Carbon Dioxide 26 Anion Gap 12.7 BUN 28 H Creatinine 2.84 H BUN/Creatinine Ratio 9.9 L Random Glucose 118 H Serum Osmolality 280.4 Calcium 9.2 Total Bilirubin 0.3 AST 23 ALT 17 Alkaline Phosphatase 74 Serum Total Protein 8.5 H Albumin 3.0 L Globulin 5.5 H Albumin/Globulin Ratio 0.5 L Urine Color Yellow Urine Appearance Sl cloudy Urine pH 5.0 Ur Specific [place] >= 1.030 Urine Protein 100 H Urine Glucose (UA) Negative Urine Ketones Negative Urine Blood Large H Urine Nitrite Negative Urine Bilirubin Small H Urine Urobilinogen 0.2 Ur Leukocyte Esterase Small H Urine RBC 10-20 H Urine WBC 5-10 H Ur Epithelial Cells 3-5 Urine Bacteria 1+ Hyaline Casts 1-3 Departure - Departure Clinical Impression: Gastroenteritis Time of Disposition: 21:49 Disposition: Admit Patient Condition: Fair Referrals: Delmi Redd NP [Primary Care Provider] - 1-2 Weeks Home Medications: Ambulatory Orders Ibuprofen 400 mg PO Q6HR PRN 04/27/18 Comments: DISCUSSED WITH MIRIAM JAMES NP ABOUT ADMISSION FOR IV HYDRATION RECHECK RENAL FUNCTION AM
[2018-05-25] MEDS ORDERED: levoFLOXacin 500MG IV 500 MG in PREMIX BAG 1 BAG IVPB ONE (21:48)
[2018-05-25] MEDS ORDERED: levoFLOXacin 500MG IV 100 ML IVPB ONE (22:20)
--- NOTE | 2018-05-25 23:11 | HP ---
SUPERVISING PHYSICIAN: Ozzie Aparicio MD CHIEF COMPLAINT: Nausea and vomiting x3 days. HISTORY OF PRESENT ILLNESS: This is a 33 year-old patient who has had some nausea and vomiting and diarrhea for about a week. It was actually very sporadic about a week ago until 3 days ago she got intractable nausea and vomiting. She has 3 to 5 loose stools per day but that has predominantly stopped. She came to the Emergency Room and her vital signs showed she was afebrile with a pulse rate of 113. Her blood pressure was 129/84, respiratory rate 18 and 02 saturation of 96%. Her lab was done and her WBCs were 8.2 with hemoglobin of 10.8 and hematocrit of 33.5. She did have a left shift on her differential. Electrolytes were basically within normal limits but her creatinine was 2.84. Her baseline creatinine is about 0.9. Urinalysis showed 100 urine protein, a large amount of urine blood, small amount of uro-bilirubin , small amount urine leukocyte esterase, 10 to 20 urine RBCs and 5 to 10 urine WBCs. She was given several liters of fluid in the Emergency Room as well as Levaquin. She was also given some Zofran and some morphine sulfate and I was called for hospital admission. PAST MEDICAL HISTORY: 1. Ovarian cyst. 2. Gestational diabetes with her second child 12 years ago. 3. Arthritis. 4. Depression ad anxiety. PAST SURGICAL HISTORY: 1. Tubal ligation. 2. Seasonal allergies. CURRENT MEDICATIONS: 1. Celexa. ALLERGIES: No known drug allergies. SOCIAL HISTORY: She lives in [place]. She is . She has 2 children. She just recently lost her job. She denies any tobacco, ETOH or illicit drug use. REVIEW OF SYSTEMS: GENERAL: Positive for about a 20 to 25 pound weight loss due to stress and anxiety over the last 2 months. Negative for fever or chills. HEENT: Negative for sinus pain, vision changes, ear pain or sore throat. RESPIRATORY: Negative for coughing, wheezing or shortness of breath. CARDIAC: Negative for chest pain, palpitations. tachycardia. GASTROINTESTINAL: As per history of present illness. GENITOURINARY: Negative for hematuria, dysuria, polyuria. MUSCULOSKELETAL: Negative for back pain, positive for arthralgias and myalgias. SKIN: Negative for lesions or rashes. NEUROLOGIC: Positive for weakness, negative for headache, dizziness or seizures. PHYSICAL EXAMINATION: VITAL SIGNS: Temperature 99.4, heart rate 97, blood pressure 112/79, respiratory rate 16. 02 saturation 98%. GENERAL: This is a 33 year-old female patient who is lying in her hospital bed. She is in no acute distress. HEENT: Normocephalic and atraumatic. Pupils are equal and reactive. She has bilateral erythematous conjunctiva. NECK: Supple without mass. CHEST: Essentially clear to auscultation bilaterally. There is equal rise and fall of the chest with inspiration and expiration. CARDIOVASCULAR: Regular rate and rhythm. ABDOMEN: Soft, nondistended, diffusely tender in all 4 quadrants. Bowel sounds are positive. She does have moderate bilateral CVA tenderness. EXTREMITIES: No cyanosis, clubbing, or edema. NEUROLOGIC: She is alert and oriented x 3. Cranial nerves II through XII are grossly intact. LABORATORY: Labs and films are per the history of present illness. ASSESSMENT: 1. Acute renal failure with creatinine of 2.84 on admission and a baseline creatinine of 0.9. 2. Nausea and vomiting with dehydration. 3. Urinary tract infection. 4. Depression and anxiety most likely secondary to stress from losing her job recently. She has recently been put on Celexa 2 days ago. 5. Allergic conjunctivitis. PLAN: We will admit the patient to the hospital. She has received 2 liters of fluid and I will put her on bowel rest and give her fluids overnight. She may require another liter or 2 in the next day or so. She was given Levaquin in the Emergency Room so I have ordered a culture on her urine and we will continue that antibiotic. We repeated her labs this morning. It may be beneficial to do a CT of the abdomen and pelvis and/or an abdominal ultrasound due to her CVA tenderness and to make sure we can rule out pyelonephritis, although she does have a normal white count. She also may need some eyedrops tomorrow, although she refused them this evening. I have ordered a PPI for ulcer prophylaxis as well as Lovenox for DVT prophylaxis. I have also ordered her antiemetics. We will continue to monitor closely and follow as needed. Dr. Aparicio is the collaborating physician and available for consultation. #[id number] [facility]
[2018-05-26] MEDS ORDERED: PANTOPRAZOLE SODIUM IV 40 MG VIAL IV SCH (00:30)
[2018-05-26] MEDS: IV SET AND CAP CHANGE INJ INJ SCH (00:59)
[2018-05-26] MEDS: KCL 20MEQ/D5 1/2NS 1,000 ML IVS PRN ×2 (01:01→19:28)
[2018-05-26] MEDS: ONDANSETRON INJ 4 MG/2 ML VIAL IV PRN ×3 (07:31→21:15)
[2018-05-26] MEDS: SODIUM CHLORIDE 0.9% (FLUSH) 10 ML SYG IV SCH ×2 (08:08→21:00)
[2018-05-26] MEDS ORDERED: PROMETHAZINE HCL INJ 25 MG/ML VIAL ONE ×3 (08:30→22:49)
[2018-05-26] MEDS ORDERED: SODIUM CHLORIDE 0.9% 50ML 50 ML ONE ×3 (08:30→22:49)
[2018-05-26] MEDS: PROMETHAZINE HCL INJ 25 MG in SODIUM CHLORIDE 0.9% 50ML 50 ML IVPB PRN ×3 (08:33→22:52)
--- NOTE | 2018-05-26 13:32 | CT ---
EXAM DESCRIPTION: Abdoment/Pelvis w/o Contrast CLINICAL HISTORY: UTI, N/V, Fartun CVA tendernes and lower abd pain COMPARISON: None Available TECHNIQUE: CT of the abdomen and Pelvis was performed without IV contrast. This exam was performed according to our departmental dose-optimization program, which includes automated exposure control, adjustment of the mA and/or kV according to patient size and/or use of iterative reconstruction technique. FINDINGS: There is a tiny left-sided pleural effusion, only partially visualized, with overlying atelectasis in the left lung base. No pneumoperitoneum, adenopathy or ascites. No abdominal aortic aneurysm. No hiatal hernia or gastric wall thickening. No calcified gallstone. The liver, spleen, pancreas, adrenals and kidneys are unremarkable for noncontrast technique. No left or right sided ureteral calculus or hydronephrosis. No dilated small bowel loops or mesenteric inflammation. The uterus and ovaries are unremarkable for patient's age. Small physiologic cysts are noted in both ovaries and require no further follow-up. No colonic wall thickening or pericolonic inflammation. Normal appendix. No suspicious bone lesion. IMPRESSION: No urinary tract calculus or additional abnormality in the abdomen or pelvis to explain patient's symptoms. Tiny left-sided pleural effusion with overlying atelectasis in the left lung base, only partially visualized. Electronically signed by: Claudio Verduzco MD 05/26/2018 1:31 PM CHIEF MEDICAL DIRECTOR
[2018-05-26] MEDS ORDERED: SODIUM CHLORIDE 0.9% 1000ML 1,000 ML IVS ONE (15:08)
[2018-05-26] MEDS: MORPHINE SULFATE INJ 10 MG/ML VIAL IV PRN (17:04)
[2018-05-26] MEDS ORDERED: levoFLOXacin 500MG IV 100 ML IVPB ONE (19:34)
[2018-05-26] MEDS: ENOXAPARIN SODIUM 30 MG/0.3 ML SYG SUBCU SCH (20:58)
[2018-05-26] MEDS: PANTOPRAZOLE SODIUM IV 40 MG VIAL IV SCH (21:00)
[2018-05-26] MEDS ORDERED: levoFLOXacin 500MG IV 500 MG in PREMIX BAG 1 BAG IVPB SCH (21:00)
--- NOTE | 2018-05-26 21:44 | PN ---
DATE: 05/26/18 SUPERVISING PHYSICIAN: Rafita Bradford M.D. SUBJECTIVE: The patient continues to feel very poorly. She still has some nausea and some dry heaves. She has been afebrile but notes that she is having some mild abdominal pains, more so when she is actively vomiting but she has no chest pains and she has not had any more diarrhea. OBJECTIVE: VITAL SIGNS: Temperature 98.7, pulse 83, blood pressure 106/68, respirations 18, satting 100% on room air. I's and O's show a negative balance of 149 with 1051 in, 1200 out. Weight is 82.4 kg. GENERAL: The patient is very ill-appearing and depressed in affect. She is alert. CHEST: Lungs are clear to auscultation bilaterally. HEART: Regular rate and rhythm. ABDOMEN: Soft with some tenderness noted across the right lower quadrant but no rebound or guarding. Bowel sounds were positive. EXTREMITIES: Without any clubbing, cyanosis or edema. NEUROLOGIC: She is alert and oriented times three. LABORATORY: White count 6,700, hemoglobin showing to be 9.8 and hematocrit 30.7 with RBC indices indicating a microcytic hyperchromic anemia with no left shift noted. Chemistries show normal electrolytes with potassium 4.1, BUN 26, creatinine 284. Liver functions showing to be within normal limits. MICROBIOLOGY: Urine culture is pending. RADIOLOGY: Abdominal/pelvic CT is pending. ASSESSMENT: 1. Acute renal failure possibly due to chronic NSAID usage and exacerbated by prerenal azotemic state from moderate dehydration with the patient's creatinine baseline normally at 0.9, now showing to be 2.84. 2. Nausea and vomiting with dehydration likely due to viral gastroenteritis versus complications from underlying urinary tract infection. 3. Urinary tract infection with cultures pending with the patient on parenteral antibiotics. 4. Depression and anxiety secondary to recent stress from losing her job and having just been recently started on Celexa within the last 3 days. 5. Allergic conjunctivitis. 6. Anemia with microcytic/hypochromic presentation. Continue further workup as an outpatient with concerns for iron deficiency with further labs pending AM draws. PLAN: Will go ahead and try to give the patient another liter of fluids bolus as she is very dry in appearance. I am going to go ahead and do a CT of her abdomen given that she has continued to have some lower abdominal pain with some CVA tenderness with the underlying urinary tract infection with concern for possible developing pyelonephritis, but more likely underlying viral gastroenteritis. She has not had any more diarrhea. Will continue to monitor. She does remain on antibiotics for the urinary tract infection. We are awaiting those cultures to target antibiotic therapy as appropriate. Will await further studies of the abdomen and pelvis without contrast and treat accordingly as those results indicate. Will anticipate at least another 24 hours of hospitalization and continued fluid maintenance until she can transition to outpatient management. Will continue to monitor and treat as needed. #[id number] [facility]
[2018-05-27] MEDS: KCL 20MEQ/D5 1/2NS 1,000 ML IVS PRN ×2 (05:12→14:45)
[2018-05-27] MEDS ORDERED: PROMETHAZINE HCL INJ 25 MG/ML VIAL ONE ×2 (05:33→19:22)
[2018-05-27] MEDS ORDERED: SODIUM CHLORIDE 0.9% 50ML 50 ML ONE ×2 (05:33→19:22)
[2018-05-27] MEDS: PROMETHAZINE HCL INJ 25 MG in SODIUM CHLORIDE 0.9% 50ML 50 ML IVPB PRN ×2 (05:36→19:27)
[2018-05-27] MEDS: MORPHINE SULFATE INJ 10 MG/ML VIAL IV PRN (08:42)
[2018-05-27] MEDS: ONDANSETRON INJ 4 MG/2 ML VIAL IV PRN (08:42)
[2018-05-27] MEDS ORDERED: ACETAMINOPHEN SUPPOSITORY 650 MG PR PRN (08:45)
[2018-05-27] MEDS ORDERED: SODIUM CHL 0.9% 50ML MIN-BAG+ 50 ML IVPB ONE (09:51)
[2018-05-27] MEDS ORDERED: cefTRIAXone SODIUM 1 GM VIAL ONE (09:51)
[2018-05-27] MEDS: cefTRIAXone SODIUM 1 GM in SODIUM CHL 0.9% 50ML MIN-BAG+ 50 ML IVPB SCH (10:06)
[2018-05-27] MEDS: SODIUM CHLORIDE 0.9% (FLUSH) 10 ML SYG IV SCH ×2 (10:06→20:44)
[2018-05-27] MEDS: ACETAMINOPHEN 325 MG TAB PO PRN (12:41)
--- NOTE | 2018-05-27 19:12 | PN ---
DATE: 05/27/18 SUPERVISING PHYSICIAN: Rafita Bradford M.D. SUBJECTIVE: The patient continues to look ill in appearance and very pale. She has had some nausea overnight but notes that her pain in her abdomen is no longer present and she feels a little bit better, and is willing to try some clear liquids. She has run a low-grade fever overnight which is responding to Tylenol. She continues to have some diarrhea. We are awaiting stool workup for further assessment. OBJECTIVE: VITAL SIGNS: T max temperature is 100.2, pulse 99, blood pressure 108/74, respirations 19, satting 98% on room air. I's and O's show a positive balance of 53 with 2153 in, 2100 out. Weight is 83.6 kg. GENERAL: The patient continues to appear ill. She has a very flat affect. She is alert but seems to be a little bit more cheerful today than yesterday. Her is present at time of exam. CHEST: Lungs remain clear to auscultation bilaterally. HEART : Regular rate and rhythm. ABDOMEN: Soft with no tenderness noted today. No rebound tenderness. Bowel sounds were positive. EXTREMITIES: Without any clubbing, cyanosis or edema. NEUROLOGIC: She is alert and oriented times three. LABORATORY: White count 5,300, hemoglobin is down to 8.9, hematocrit 28.0 with RBC indices indicating a microcytic/hypochromic presentation with platelet count 272,000. Differential shows to be without a left shift today. Chemistries show normal electrolytes with potassium 4.8, BUN 23, creatinine has shown elevation up to 3.1 compared to 2.88 yesterday. Calcium 8.4, glucose 98. TSH was normal at 1.67. I did run iron studies on her. Her iron was low at 16 as well as TIBC was low at 149.8, iron saturation 10.6. Transferrin is pending. Serum folate was within normal limits at 7.18. She also has a pending reticulocyte count. MICROBIOLOGY: Urine culture still remain spending. RADIOLOGY: No additional radiographic studies today. ASSESSMENT: 1. Acute renal failure, uncertain etiology at this point, although probably due to chronic NSAID usage and exacerbated by prerenal azotemic state from moderate dehydration and mild anemia with the patient's creatinine in the past being 0.91 and now showing to be at 3.1. 2. Nausea and vomiting, persistent with dehydration felt to be probably due to viral gastroenteritis complicated by underlying urinary tract infection with no abnormal findings on CT of the abdomen with continued maintenance of IV fluids and transitioning to clear liquid diet. 3. Urinary tract infection with cultures pending with the patient continuing on parenteral antibiotics. 4. Depression and anxiety secondary to recent stress event from losing her job and having just been recently started on Celexa within the last 3 days. 5. Allergic conjunctivitis, resolved. 6. Anemia with microcytic/hypochromic presentation and iron studies indicating likely probable iron deficiency anemia, although continued further workup in the outpatient setting is warranted. There are some other concerns for maybe possible celiac disease as part of the differential along with the acute renal failure contributing to some of the anemia. No acute loss is noted. No abnormal menstrual cycles. PLAN: Will continue with fluid maintenance at this point and give her some clear liquid diet as she feels like she can tolerate some oral intake at this point. We continue to monitor her urinary culture and will further target antibiotic therapy once that is available. There is no evidence of pyelonephritis on CT scan. Certainly hopefully be able to discharge within the next 24 to 48 hours as she continues to improve and tolerate oral intake. Will continue to monitor her H&H which more likely is chronic and secondary to iron deficiency anemia and chronic inflammation or chronic illness such as arthritis or celiac disease needing further workup as an outpatient. Until she can transition to outpatient management, will continue to monitor and treat as needed. #[id number] [facility]
[2018-05-27] MEDS: ENOXAPARIN SODIUM 30 MG/0.3 ML SYG SUBCU SCH (20:43)
[2018-05-27] MEDS: PANTOPRAZOLE SODIUM IV 40 MG VIAL IV SCH (20:43)
[2018-05-28] MEDS ORDERED: cefTRIAXone SODIUM 1 GM VIAL ONE (07:21)
[2018-05-28] MEDS ORDERED: SODIUM CHL 0.9% 50ML MIN-BAG+ 50 ML IVPB ONE (07:21)
[2018-05-28] MEDS: cefTRIAXone SODIUM 1 GM in SODIUM CHL 0.9% 50ML MIN-BAG+ 50 ML IVPB SCH (08:27)
[2018-05-28] MEDS: SODIUM CHLORIDE 0.9% (FLUSH) 10 ML SYG IV PRN (08:28)
[2018-05-28] MEDS ORDERED: SODIUM BICARBONATE VIAL 50 MEQ/50 ML VIAL ONE ×2 (10:25→18:12)
[2018-05-28] MEDS ORDERED: DEXTROSE 5% 1000ML 1,000 ML IVS ONE ×2 (10:25→18:12)
[2018-05-28] MEDS: SODIUM BICARBONATE VIAL 75 MEQ in DEXTROSE 5% 1000ML 1,000 ML IVS PRN ×2 (10:26→18:18)
[2018-05-28] MEDS: ONDANSETRON INJ 4 MG/2 ML VIAL IV PRN ×2 (10:33→19:58)
[2018-05-28] MEDS ORDERED: MAGNESIUM SULFATE PREMIX 2GM 2 GM in PREMIX BAG 1 BAG IVPB ONE (12:48)
[2018-05-28] MEDS ORDERED: MAGNESIUM SULFATE PREMIX 2GM 50 ML IVPB ONE (13:18)
--- NOTE | 2018-05-28 17:10 | PN ---
DATE: 05/28/18 SUPERVISING PHYSICIAN: Rafita Bradford M.D. SUBJECTIVE: The patient is lying in bed. She complains of some nausea and just not feeling well. There has been no vomiting since yesterday. Abdomen is diffusely tender but no complaints of chest pain or shortness of breath. OBJECTIVE: T max 24 hours is 100.2, heart rate is mostly in the 90s. It did get up as high as 101. Blood pressure has been as low as 97/68, presently it is 131/79. Respiratory rate is 20, O2 sat is 94% on room air. RESPIRATORY: Essentially clear to auscultation bilaterally. CARDIAC: Regular rate and rhythm. GASTROINTESTINAL: Abdomen is soft, it is diffusely tender. There is no rebound tenderness or guarding. Bowel sounds are positive. EXTREMITIES: Trace of pedal edema bilaterally. Bilateral pedal pulses are palpable at +2. NEUROLOGIC: She is awake, alert and oriented times three. LABORATORY: White count is 6,000, hemoglobin and hematocrit are 8.9 and 23.3. She has no left shift on differential. Electrolytes are basically within normal limits with the exception of magnesium is slightly low at 1.8. CPK is 18 , creatinine has gone up to 3.42. Stool leukocytes are positive. Clostridium Difficile is negative for both toxin and antigen. Urine culture is still pending. All other labs and films have been reviewed via the EMR. ASSESSMENT: 1. Acute renal failure with creatinine of 2.84 on admission, today it is 3.4. Her baseline creatinine approximately 1 month ago was 0.9. 2. Nausea and vomiting with dehydration that has improved. 3. Urinary tract infection, awaiting cultures. 4. Depression and anxiety most likely secondary to stress from losing her job recently. She had been put on Celexa last week. 5. Allergic conjunctivitis that has improved. 6. Anemia with microcytic/hypochromic presentation. Her iron studies indicate most likely probable iron deficiency anemia. She will need further workup. PLAN: We will continue present supportive care. I spoke with Dr. Acosta, proj mgr, today and he was concerned with the continuing elevation of her creatinine and recommended that we put her on a bicarb drip overnight and to recheck her electrolytes and creatinine in the morning. He also recommended that a CPK be done in case she had some Rhabdomyolysis which we found that that was negative. He will see her Tuesday if she is out of the hospital at that time for further workup. He also agreed that we should probably send her to Hematology, a GI doctor as well as possibly a system consultant. I will have her followup with Dr. Renteria at [facility]. We need to strongly recommended that she stop taking any type of NSAIDs. I have replaced her magnesium. Will recheck her lab along with her magnesium level in the morning. I have also ordered a renal ultrasound, an abdomen complete ultrasound and a transvaginal ultrasound in the morning. I have placed her on a sodium bicarb drip of D5W with 75 mEq of bicarb at 150 mL an hour. I will contact Dr. Acosta in the morning for further recommendations. Continue to encourage good pulmonary hygiene. Will continue to monitor closely and follow as needed. #[id number] [facility]
[2018-05-28] MEDS: ACETAMINOPHEN 325 MG TAB PO PRN (18:19)
[2018-05-28] MEDS: ENOXAPARIN SODIUM 30 MG/0.3 ML SYG SUBCU SCH (21:14)
[2018-05-28] MEDS: PANTOPRAZOLE SODIUM IV 40 MG VIAL IV SCH (21:14)
[2018-05-28] MEDS ORDERED: PROMETHAZINE HCL INJ 25 MG/ML VIAL ONE (22:40)
[2018-05-28] MEDS ORDERED: SODIUM CHLORIDE 0.9% 50ML 50 ML ONE (22:41)
[2018-05-28] MEDS: PROMETHAZINE HCL INJ 25 MG in SODIUM CHLORIDE 0.9% 50ML 50 ML IVPB PRN (22:44)
[2018-05-29] MEDS: IV SET AND CAP CHANGE INJ INJ SCH (00:29)
[2018-05-29] MEDS ORDERED: DEXTROSE 5% 1000ML 1,000 ML IVS ONE ×2 (01:33→19:06)
[2018-05-29] MEDS ORDERED: SODIUM BICARBONATE VIAL 50 MEQ/50 ML VIAL ONE ×2 (01:34→19:06)
[2018-05-29] MEDS: SODIUM BICARBONATE VIAL 75 MEQ in DEXTROSE 5% 1000ML 1,000 ML IVS PRN ×2 (01:39→19:51)
[2018-05-29] MEDS ORDERED: PROMETHAZINE HCL INJ 25 MG/ML VIAL ONE ×2 (07:36→19:53)
[2018-05-29] MEDS ORDERED: SODIUM CHLORIDE 0.9% 50ML 50 ML ONE ×2 (07:36→19:54)
[2018-05-29] MEDS: PROMETHAZINE HCL INJ 25 MG in SODIUM CHLORIDE 0.9% 50ML 50 ML IVPB PRN ×2 (07:56→19:58)
[2018-05-29] MEDS ORDERED: SODIUM CHL 0.9% 50ML MIN-BAG+ 50 ML IVPB ONE (08:36)
[2018-05-29] MEDS ORDERED: cefTRIAXone SODIUM 1 GM VIAL ONE (08:37)
[2018-05-29] MEDS: cefTRIAXone SODIUM 1 GM in SODIUM CHL 0.9% 50ML MIN-BAG+ 50 ML IVPB SCH (08:44)
--- NOTE | 2018-05-29 10:15 | US ---
EXAM DESCRIPTION: Pelvis Transvaginal: Ultrasound. CLINICAL HISTORY: abd pain COMPARISON: Ultrasound abdomen on the same visit. TECHNIQUE: Endovaginal scanning; Mcginnis-scale and Doppler modes. FINDINGS: Uterus 9.6 x 5.4 x 4.2 cm. Endometrial thickness is 1.4 mm. Myometrium appears heterogeneous. 3.0 x 2.6 x 2.0 cm hyperechoic mass posterior to the endometrium.. Uterus not retroflexed. Cervix cystic objects 5.5 and 6.9 mm.. Cul-de-sac contains minimal fluid. Right ovary 3.3 x 3.2 x 2.1 cm. Normal waveform and color Doppler vascularity. Multiple follicles but no cysts. No adnexal mass or free fluid. Left ovary 2.2 x 2.2 x 2.1 cm. Normal color Doppler vascularity. Small follicles but no cysts. No adnexal mass or free fluid. IMPRESSION: 1. Normal size of uterus with no endometrial thickening. 3.0 cm hyperechoic fibroid possibly submucosa. Nabothian cysts in the cervix. 2. Multiple follicles in the bilateral ovaries which are not enlarged. No cysts. No adnexal mass. Electronically signed by: Jacky Durbin MD 05/29/2018 10:13 AM PRELIMINARY SCHOOL PSYCHOLOGIST
[2018-05-29] MEDS ORDERED: SODIUM CHLORIDE 0.9% 500ML 500 ML ONE (10:23)
--- NOTE | 2018-05-29 10:23 | US ---
EXAM DESCRIPTION: Abdomen,Complete: Ultrasound. CLINICAL HISTORY: abd pain COMPARISON: None Available. TECHNIQUE: Transabdominal scannin-dimensional and Doppler modes. FINDINGS: Gallbladder: No intraluminal stones or sludge. Normal size. Wall thickness 2.1 mm. No fluid around the wall. Nontender with transducer pressure. Common bile duct: 4.9 mm is normal caliber. Liver: Normal echogenicity. Capsule smooth where seen. No ascites. No intrahepatic biliary dilatation. Portal vein normal hepatopedal flow and 9.7 mm caliber. Long axis of the right lobe is 15.1 cm. Pancreas: Normal size and echogenicity. Duct not seen.. Abdominal aorta: Normal caliber from the proximal segment to the distal bifurcation. IVC: visualized; normal caliber. Spleen normal echogenicity; long axis measurement is 11.4 cm. Right kidney: 11.3 cm long axis. Normal cortical thickness and echogenicity. No hydronephrosis or perinephric edema. Normal vascularity. Left kidney: 11.4 cm long axis. Normal cortical thickness and echogenicity. No hydronephrosis or perinephric edema. Normal vascularity. IMPRESSION: 1. Normal ultrasound of the gallbladder with normal wall thickness. Nontender during scanning. Normal caliber of the common bile duct. 2. Liver and pancreas unremarkable. Normal caliber of the abdominal aorta and IVC. 3. Negative findings of the spleen and right kidney and left kidney. Electronically signed by: Jacky Durbin MD 05/29/2018 10:22 AM MACHINE REBUILDER
[2018-05-29] MEDS ORDERED: SODIUM CHLORIDE 0.9% 500ML 500 ML IVS PRN (11:52)
[2018-05-29] MEDS ORDERED: diphenhydrAMINE HCL 50 MG/ML VIAL IV ONE (11:56)
[2018-05-29] MEDS ORDERED: FUROSEMIDE INJ 20 MG/2 ML VIAL IV ONE (11:56)
[2018-05-29] MEDS ORDERED: ACETAMINOPHEN 325 MG TAB PO ONE (11:56)
--- NOTE | 2018-05-29 13:31 | PN ---
SUPERVISING PHYSICIAN: Rafita Bradford M.D. DATE: 05/29/18 SUBJECTIVE: The patient is lying in bed. She is very weak and pale. We discussed her plan of care. She may be transferred to [place] tomorrow if her creatinine does not improve. She complains of weakness and just generally feeling poorly. She has had some nausea. She had one episode of emesis. She denies chest pain, shortness of breath or abdominal pain. OBJECTIVE: VITAL SIGNS:Temperature 100.4. Heart rate 92. Blood pressure 120/82. Respiratory rate 18. O2 saturation 97% on room air. RESPIRATORY: Essentially clear to auscultation bilaterally, somewhat diminished at the bases. CARDIAC: Regular rate and rhythm. GASTROINTESTINAL: Abdomen is soft, it is diffusely tender. There is no rebound tenderness. Bowel sounds are positive. EXTREMITIES: No cyanosis, clubbing or edema. NEUROLOGIC: She is awake, alert and oriented times three. LABORATORY: WBCs 6.7, but her hemoglobin has dropped to 7.9. Hematocrit is 29.4. She does have a slight left shift on differential. Sodium 135, potassium slightly low at 3.5, chloride 101, carbon dioxide 26. BUN 19, but her creatinine has again gone up to 3.73. Glucose 128, magnesium 2.1. Creatinine kinase 18. Serum total protein 6, albumin 2.3. Stool for occult blood is negative. Transvaginal ultrasound shows normal sized uterus with no endometrial thickening, 3.0 cm hyperechoic fibroid possibly mucosa, nabothian cyst in the cervix, metallic follicles in the bilateral ovaries, which are not enlarged, no cyst, no adnexal mass. Abdominal ultrasound shows 1) Normal underlying of the gallbladder with normal wall thickness, nontender during scanning. Normal caliber of the common bile duct. 2) Liver and pancreas unremarkable. Normal caliber of abdominal aorta and IVC. 3) Negative findings of spleen and right kidney and left kidney. All other labs and films have been reviewed via the EMR. ASSESSMENT: 1. Acute renal failure with creatinine of 2.84 on admission, today it is 3.73. Her baseline creatinine approximately 1 month ago was 0.9. 2. Nausea and vomiting with dehydration, somewhat improved. 3. Urinary tract infection, awaiting cultures. 4. Depression and anxiety most likely secondary to stress from losing her job recently. She had been put on Celexa last week. 5. Allergic conjunctivitis, improved. 6. Anemia with microcytic/hypochromic presentation. Her iron studies indicate most likely probable iron deficiency anemia. She will need further workup with asbestos brake lining finisher. PLAN: We will continue present supportive care. Due to her low hemoglobin, she will get 2 units of packed red blood cells today. We will recheck her labs in the morning. I spoke with Dr. Acosta, director of audiology, and he agreed that her bicarb drip should be continued overnight and if her creatinine does not improve by tomorrow, it would be beneficial for her to be transferred to [facility] for more specific workup. I have ordered lab for in the morning and we will monitor close and follow as needed. #[id number] MTDD
[2018-05-29] MEDS: ONDANSETRON INJ 4 MG/2 ML VIAL IV PRN (18:13)
[2018-05-29] MEDS: SODIUM CHLORIDE 0.9% (FLUSH) 10 ML SYG IV PRN (18:14)
[2018-05-29] MEDS: ENOXAPARIN SODIUM 30 MG/0.3 ML SYG SUBCU SCH ×2 (20:55→20:59)
[2018-05-29] MEDS: PANTOPRAZOLE SODIUM IV 40 MG VIAL IV SCH (20:56)
[2018-05-30] MEDS ORDERED: SODIUM BICARBONATE VIAL 50 MEQ/50 ML VIAL ONE (03:00)
[2018-05-30] MEDS ORDERED: DEXTROSE 5% 1000ML 1,000 ML IVS ONE (03:00)
[2018-05-30] MEDS: SODIUM BICARBONATE VIAL 75 MEQ in DEXTROSE 5% 1000ML 1,000 ML IVS PRN (03:07)
[2018-05-30] MEDS ORDERED: PROMETHAZINE HCL INJ 25 MG/ML VIAL ONE (05:29)
[2018-05-30] MEDS ORDERED: SODIUM CHLORIDE 0.9% 50ML 50 ML ONE (05:30)
[2018-05-30] MEDS: PROMETHAZINE HCL INJ 25 MG in SODIUM CHLORIDE 0.9% 50ML 50 ML IVPB PRN (05:42)
[2018-05-30 07:14] VITALS: TEMP 98.4
[2018-05-30] MEDS ORDERED: SODIUM CHL 0.9% 50ML MIN-BAG+ 50 ML IVPB ONE (07:29)
[2018-05-30] MEDS ORDERED: cefTRIAXone SODIUM 1 GM VIAL ONE (07:29)
[2018-05-30] MEDS: cefTRIAXone SODIUM 1 GM in SODIUM CHL 0.9% 50ML MIN-BAG+ 50 ML IVPB SCH (08:53)
[2018-05-30] MEDS: ONDANSETRON INJ 4 MG/2 ML VIAL IV PRN (09:28)
[2018-05-30 09:36] VITALS: BP 121/84; O2SAT 99
--- NOTE | 2018-05-30 15:43 | DS ---
SUPERVISING PHYSICIAN: Rafita Bradford MD DISCHARGE DIAGNOSIS: 1. Acute renal failure with creatinine of 2.84 on admission, today it is 4.2. Her baseline creatinine approximately one month ago was 0.9. 2. Nausea and vomiting with dehydration, somewhat improved. 3. Urinary tract infection, awaiting cultures, presently on Rocephin. 4. Depression and anxiety, most likely secondary to stress from losing her job recently. She has been put on Celexa last week. 5. Allergic conjunctivitis, improved. 6. Anemia with microcytic/hypochromic presentation. She received 2 units of packed red blood cells yesterday. Today, her hemoglobin was 11.2. 7. History of rheumatoid arthritis, presently on no treatment regimen. She had taken Aleve [id number] medication prior to her admission, but has had no NSAIDs since admission. HISTORY OF PRESENT ILLNESS: This is a 33-year-old female patient who presented to the Emergency Room on the date of admission due to some nausea and vomiting with some mild diarrhea for approximately one week. It was very sporadic until about a week ago and then three days ago, she got intractable nausea and vomiting. She had had 3 to 5 loose stools per day, but that predominantly stopped. Her vital signs showed she was afebrile with a pulse rate of 113. Her blood pressure was 129/84, respiratory rate 18 and 02 saturation of 96%. Her lab in the Emergency Room showed WBC 8.2 with hemoglobin of 10.8 and hematocrit of 33.5. She did have a left shift on her differential. Electrolytes were basically within normal limits. Creatinine was 2.84. Her baseline creatinine approximately one month ago was 0.9 and has always shown a normal creatinine. Urinalysis showed 100 urine protein, a large amount of urine blood, small amount of urobilirubin, small amount urine leukocyte esterase , 10 to 20 urine RBCs and 5 to 10 urine WBCs. She was given several liters of fluid in the Emergency Room as well as Levaquin. She was also given some Zofran and some morphine sulfate and I was called for hospital admission. HOSPITAL COURSE: The patient was changed to Rocephin and discontinued with the Levaquin due to her acute kidney failure. Her only previous history had been ovarian cysts and gestational diabetes with a second child approximately 12 years ago. She also had been diagnosed with some arthritis, but she only took Aleve prior to her admission for the arthritis. She also had been started on the day prior to admission on Celexa. She had been very depressed and anxious over the last several months as she lost her job. She also lost approximately 25 pounds over the last 2 months, but she felt like it was due to stress and anxiety from the loss of the job. Over the next several days, her hemoglobin and hematocrit continued to go down. On 05/29/18, her hemoglobin was 7.9 and she required infusion of 2 units of packed red blood cells. Her retic count was 0.7 with an absolute retic count of 22,890. Her creatinine steadily increased each day and today it was 4.2. Her electrolytes were basically within normal limits. She had several times where she was very mildly hypokalemic with some mild hypomagnesemia and those electrolytes were replaced. She continued to have nausea throughout her hospital stay with only intermittent vomiting. Two days prior to discharge, I called Dr. Acosta, her manufacturing technician in [place], and reviewed her case with him. He recommended I change her IV fluids to dextrose solution with bicarb in it. He also recommended that I do a sonogram. Her abdomen and pelvic CT in the Emergency Room was basically unremarkable. It showed no urinary tract calculus or any other abnormality. Her transvaginal ultrasound showed normal sized uterus with no endometrial thickening, 3 cm hyperechoic fibroid, possibly submucosal, nabothian cyst in the cervix and multiple follicles in the bilateral ovaries which are not enlarged. No cysts, no adnexal mass. Her abdominal ultrasound showed normal ultrasound of the gallbladder with normal wall thickness, nontender during scanning, normal caliber of the common bile duct. Liver and pancreas unremarkable. Normal caliber of the abdominal aorta and IVC. Negative findings of the spleen as well as right and left kidney. Hemoglobin improved today to 11.3 with hematocrit 35 after receiving 2 units of packed red blood cells. Stool culture is pending. She had the presence of elevated fecal lactoferrin or fecal WBCs. C. difficile was negative for antigen and negative for toxin. Her final urine culture showed beta Streptococcus group B and no significant pathogens recovered, no further workup required, but due to her continually elevated creatinine as well as her anemia and her clinical condition that was not improving, I spoke with Dr. Acosta, manufacturing technician in [place], and he agreed that she should be transferred to [facility] for further testing. The patient will be discharged to [facility] with all her radiology films as well as her radiology reports. She has no home medications with the exception fo Celexa which she has not started. Report was given to the hospitalist services at [facility] in [place]. She will be transferred via ambulance. She is to followup with her primary care physician after discharge. DISCHARGE MEDICATIONS: 1. Citalopram to be resumed after she is discharged from the hospital. 2. Ceftriaxone. 3. Zofran. #[id number] MTDD
== END 2018-05-30 10:15 | disposition short-term general hospital (02) | DRG 683 ==
LOC: ER 19:30 → MS 23:10
PROVIDERS: ADMIT Nurse Practitioner Acute Care; ATTEND Nurse Practitioner Acute Care
PROC: 30263N1 (ICD-10-PCS; principal; 2018-05-29)
DX: N17.9 Acute kidney failure, unspecified (principal); N39.0 Urinary tract infection, site not specified; R11.2 Nausea with vomiting, unspecified; E86.0 Dehydration; F32.9 Major depressive disorder, single episode, unspecified; F41.9 Anxiety disorder, unspecified; D64.9 Anemia, unspecified; M06.9 Rheumatoid arthritis, unspecified; E87.6 Hypokalemia; E83.42 Hypomagnesemia; D25.2 Subserosal leiomyoma of uterus; N88.8 Other specified noninflammatory disorders of cervix uteri

== ENCOUNTER 2018-06-12 16:54 | Emergency (ER) | payer SELFPAY ==
[2018-06-12 17:14] VITALS: TEMP 98.6; O2SAT 97
[2018-06-12] MEDS ORDERED: SODIUM CHLORIDE 0.9% 1000ML 1,000 ML IVS ONE (17:58)
--- NOTE | 2018-06-12 18:45 | ED.PDOC ---
History of Present Illness - General Chief Complaint: GI Problem Stated Complaint: abd pain Time Seen by Provider: 06/12/18 17:17 Source: patient Exam Limitations: no limitations - History of Present Illness Initial Comments: Patient presents with a feeling of "uneasiness" in her abdomen. She can't explain it precisely, but says that she is eating a lot of food but having very little "come out". She feels bloated as well. She was discharged from [facility] 5 days ago after being treated with high dose steroids for renal vasculitis. She is awaiting the results of a biopsy to find out the etiology. She says she has not taken any narcotic pain medications since the first day she was admitted to the hospital. No N/V. Normal appetite. No fevers. No other complaints. History of BTL and renal biopsy but no other surgeries. Timing/Duration: other - 2 days Severity: mild Improving Factors: nothing Worsening Factors: nothing Associated Symptoms: denies symptoms Allergies/Adverse Reactions: Allergies NO KNOWN ALLERGY Allergy (Verified 06/12/18 17:06) Home Medications: Ambulatory Orders Citalopram Hydrobromide [Citalopram] 20 mg PO DAILY 05/25/18 Ondansetron Inj [Zofran Inj] 4 mg IV Q6H PRN vial 05/30/18 predniSONE 60 mg PO DAILY 06/12/18 Review of Systems - Review of Systems Constitutional: States: no symptoms reported EENTM: States: no symptoms reported Respiratory: States: no symptoms reported Cardiology: States: no symptoms reported Gastrointestinal/Abdominal: States: see HPI Genitourinary: States: no symptoms reported Musculoskeletal: States: no symptoms reported Skin: States: no symptoms reported Neurological: States: no symptoms reported Endocrine: States: no symptoms reported Hematologic/Lymphatic: States: no symptoms reported Past Medical History (General) - Patient Medical History Hx Seizures: No Hx Stroke: No Hx Dementia: No Hx Asthma: No Hx of COPD: No Hx Cardiac Disorders: No Hx Congestive Heart Failure: No Hx Pacemaker: No Hx Hypertension: No Hx Thyroid Disease: No Hx Diabetes: No Hx Gastroesophageal Reflux: No Hx Renal Disease: No Hx Cancer: No Hx of HIV: No Hx Hepatitis C: No Hx MRSA: No - Vaccination History Hx Tetanus, Diphtheria Vaccination: No Hx Influenza Vaccination: No Hx Pneumococcal Vaccination: No Immunizations Up to Date: No - Social History Hx Tobacco Use: No Hx Chewing Tobacco Use: No Hx Alcohol Use: No Hx Substance Use: No Hx Substance Use Treatment: No Hx Depression: Yes Hx Physical Abuse: No Hx Emotional Abuse: No Hx Suspected Abuse: No - Female History Patient is a Female of Child Bearing Age (10 -59 yrs old): Yes Hx Last Menstrual Period: 05/19/18 Patient : No - has had tubal ligation Family Medical History - Family History Mother Family History: No Known Living Status: Still Living Hx Family Hypertension: Yes Physical Exam - Physical Exam General Appearance: Alert Eye Exam: bilateral normal Ears, Nose, Throat: normal ENT inspection Neck: non-tender, full range of motion, supple Respiratory: lungs clear, normal breath sounds Cardiovascular/Chest: normal peripheral pulses, regular rate, rhythm, no edema Gastrointestinal/Abdominal: normal bowel sounds, non tender, soft Back Exam: normal inspection, no CVA tenderness Extremity: normal range of motion, non-tender, normal inspection Neurologic: no motor/sensory deficits, alert, normal mood/affect, oriented x 3 Skin Exam: normal color Lymphatic: no adenopathy Progress - Progress Progress: 06/12/18 20:24 Laboratory Tests 06/12/18 06/12/18 06/12/18 17:31 17:31 17:31 WBC 25.0 H* RBC 4.21 Hgb 11.0 L Hct 35.2 L MCV 83.5 MCH 26.1 L MCHC 31.3 L RDW 16.9 H Plt Count 248 MPV 9.3 Absolute Neuts (auto) Not Reportable Absolute Lymphs (auto) Not Reportable Absolute Monos (auto) Not Reportable Absolute Eos (auto) Not Reportable Neutrophils % Not Reportable Neutrophils % (Manual) 85.0 H Lymphocytes % Not Reportable Lymphocytes % (Manual) 6.0 Monocytes % Not Reportable Monocytes % (Manual) 4.0 Eosinophils % Not Reportable Basophils % Not Reportable Band Neutrophils 5.0 H Platelet Estimate Normal Anisocytosis 1+ Sodium 137 Potassium 5.8 H Chloride 107 Carbon Dioxide 22 Anion Gap 13.8 BUN 73 H Creatinine 4.57 H BUN/Creatinine Ratio 16.0 Random Glucose 158 H Serum Osmolality 298.7 H Lactic Acid Calcium 8.2 L Total Bilirubin 0.2 AST 17 ALT 30 Alkaline Phosphatase 78 Serum Total Protein 6.1 L Albumin 2.5 L Globulin 3.6 H Albumin/Globulin Ratio 0.7 L Lipase 22 Urine Color Urine Appearance Urine pH Ur Specific [place] Urine Protein Urine Glucose (UA) Urine Ketones Urine Blood Urine Nitrite Urine Bilirubin Urine Urobilinogen Ur Leukocyte Esterase Urine RBC Urine WBC Ur Epithelial Cells Amorphous Sediment Urine Bacteria Urine HCG, Qual 06/12/18 06/12/18 06/12/18 18:05 18:05 18:10 WBC RBC Hgb Hct MCV MCH MCHC RDW Plt Count MPV Absolute Neuts (auto) Absolute Lymphs (auto) Absolute Monos (auto) Absolute Eos (auto) Neutrophils % Neutrophils % (Manual) Lymphocytes % Lymphocytes % (Manual) Monocytes % Monocytes % (Manual) Eosinophils % Basophils % Band Neutrophils Platelet Estimate Anisocytosis Sodium Potassium Chloride Carbon Dioxide Anion Gap BUN Creatinine BUN/Creatinine Ratio Random Glucose Serum Osmolality Lactic Acid 1.5 Calcium Total Bilirubin AST ALT Alkaline Phosphatase Serum Total Protein Albumin Globulin Albumin/Globulin Ratio Lipase Urine Color Yellow Urine Appearance Sl cloudy Urine pH 5.5 Ur Specific [place] 1.015 Urine Protein 100 H Urine Glucose (UA) Negative Urine Ketones Negative Urine Blood Large H Urine Nitrite Negative Urine Bilirubin Negative Urine Urobilinogen 0.2 Ur Leukocyte Esterase Negative Urine RBC Tntc H Urine WBC 1-3 Ur Epithelial Cells 1-3 Amorphous Sediment 2+ Urine Bacteria Rare Urine HCG, Qual Negative I called her cut off machine unloader, Dr. Acosta, and discussed her laboratory findings with him. He said that these were all expected given her condition and that they were at her baseline. He did not believe that she needed emergent care for these. He encouraged her to make her appointment with the personnel manager on Tuesday. CT abdomen/pelvis was unremarkable for acute disease. There were small bilateral effusions in the lungs and a small pericardial effusion. Both are asymptomatic and likely due to her recent hospital stay. She agreed to follow up with her pcp for these. E.R. warnings given. Care instructions given. Questions were elicited and answered. The patient voiced understanding and agreement with the plan. Departure - Departure Clinical Impression: Abdominal pain Disposition: Discharge to Home or Self Care Condition: Good Departure Forms: ED Discharge - Pt. Copy, Patient Portal Self Enrollment Diet: other - as per your regular doctor Activity: increase activity as tolerated Referrals: Pia Lowry FNP [Primary Care Provider] - 1-2 Weeks Home Medications: Ambulatory Orders Citalopram Hydrobromide [Citalopram] 20 mg PO DAILY 05/25/18 Ondansetron Inj [Zofran Inj] 4 mg IV Q6H PRN vial 05/30/18 predniSONE 60 mg PO DAILY 06/12/18 Additional Instructions: Make your appointment on Tuesday. You may try over the counter Miralax starting tomorrow morning to see if it helps with your bowel movements. Ask your physician on Tuesday if he recommends you follow up for the small pulmonary effusions and pericardial effusions.
--- NOTE | 2018-06-12 19:14 | RAD ---
EXAM DESCRIPTION: KUB CLINICAL HISTORY: 33 years Female bloated COMPARISON: None. TECHNIQUE: Single view of the abdomen. FINDINGS: The upper abdomen was not entirely included on the film. No dilated loops of bowel to suggest obstruction. Study is limited by the patient's body habitus. IMPRESSION: No acute plain film abnormality is identified. Electronically signed by: Parvin Franklin MD 06/12/2018 7:12 PM CASTER OPERATOR
--- NOTE | 2018-06-12 20:18 | CT ---
EXAM DESCRIPTION: Abdoment/Pelvis w/o Contrast CLINICAL HISTORY:33 years Female, abdominal pain Comparison: May 26, 2018 TECHNIQUE: Contiguous axial images of the abdomen and pelvis were obtained followed by reconstruction images. This exam was performed according to our departmental dose-optimization program, which includes automated exposure control, adjustment of the mA and/or kV according to patient size and/or use of iterative reconstruction technique. FINDINGS: Lung bases: Lung bases are clear. Heart: Trace pericardial effusion, increased from prior. Liver:Unremarkable. No focal liver lesion. Gallbladder:Unremarkable. No gallstones. No gallbladder wall thickening or pericholecystic fluid. Spleen:Unremarkable Pancreas: Pancreas is unremarkable. Adrenal glands:Within normal limits. Kidneys/ureters:Within normal limits Bladder:Unremarkable. Pelvic organs: No acute abnormality Vascular structures: Small bilateral pleural effusions. Small amount of pelvic fluid. Peritoneum: No free fluid. Lymph nodes: No abnormal lymph nodes. Stomach/small bowel/colon: Stomach is unremarkable. Small bowel is unremarkable. Colon is unremarkable. Appendix: No evidence of appendicitis. Bones: No acute osseous abnormality. Soft tissues: Soft tissue swelling/edema... IMPRESSION: No bowel inflammatory changes. No obstruction. Small bilateral pleural effusions, increased from prior. Trace pericardial effusion, increased from prior. Small amount of pelvic fluid. Soft tissue edema. Electronically signed by: Alonzo Florez MD 06/12/2018 8:17 PM ADJUNCT MATHEMATICS INSTRUCTOR
[2018-06-12 20:43] VITALS: BP 129/88
== END 2018-06-12 20:43 | disposition home or self-care (01) ==
LOC: ER 16:54
DX: R10.9 Unspecified abdominal pain (principal); F32.9 Major depressive disorder, single episode, unspecified; Z98.51 Tubal ligation status
CPT/HCPCS: 36415; 74018; 74176; 80053; 81001; 81025; 83605; 83690; 85025; 87040; 93005; J7030

== ENCOUNTER 2018-06-15 11:52 | Emergency (ER) | payer SELFPAY ==
--- NOTE | 2018-06-15 12:18 | ED.PDOC ---
History of Present Illness - General Chief Complaint: General Stated Complaint: high potassium level Time Seen by Provider: 06/15/18 12:14 Source: patient Exam Limitations: no limitations - History of Present Illness Initial Comments: PT TOLD TO COME TO THE ED BY HER BOX INSPECTOR DR. JULIAN AFTER HAVING ROUTINE BLOODWORK DONE YESTERDAY WHICH SHOWED A POTASSIUM OF 6.6. PT HAS A HISTORY OF RENAL DISEASE CAUSED BY VASCULITIS. PT DENIES ANY SYMPTOMS AT THIS TIME. Severity: moderate Improving Factors: nothing Worsening Factors: nothing Associated Symptoms: denies symptoms Allergies/Adverse Reactions: Allergies NO KNOWN ALLERGY Allergy (Verified 06/12/18 17:06) Home Medications: Ambulatory Orders Citalopram Hydrobromide [Citalopram] 20 mg PO DAILY 05/25/18 Ondansetron Inj [Zofran Inj] 4 mg IV Q6H PRN vial 05/30/18 predniSONE 60 mg PO DAILY 06/12/18 Review of Systems - Review of Systems Constitutional: Denies: chills, fever EENTM: Denies: nose congestion, throat pain Respiratory: Denies: cough, short of breath Cardiology: Denies: chest pain, palpitations Gastrointestinal/Abdominal: States: constipation. 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 Hx Cancer: No Hx of HIV: No Hx Hepatitis C: No Hx MRSA: No - Vaccination History Hx Tetanus, Diphtheria Vaccination: No Hx Influenza Vaccination: No Hx Pneumococcal Vaccination: No - Social History Hx Tobacco Use: No Hx Chewing Tobacco Use: No Hx Alcohol Use: No Hx Substance Use: No Hx Substance Use Treatment: No Hx Depression: Yes Hx Physical Abuse: No Hx Emotional Abuse: No Hx Suspected Abuse: No - Female History Hx Last Menstrual Period: 05/19/18 Patient : No - has had tubal ligation Family Medical History - Family History Mother Family History: No Known Living Status: Still Living Hx Family Hypertension: Yes Physical Exam - Physical Exam General Appearance: Alert, Comfortable, No apparent distress, Well Developed, Well Groomed, Well Hydrated Eye Exam: bilateral normal Ears, Nose, Throat: hearing grossly normal Neck: normal inspection Respiratory: lungs clear, normal breath sounds Cardiovascular/Chest: regular rate, rhythm, no murmur Gastrointestinal/Abdominal: non tender, soft Back Exam: normal inspection, no CVA tenderness Extremity: normal inspection Neurologic: alert, normal mood/affect, oriented x 3 Skin Exam: warm/dry, pallor Progress - Progress Progress: 06/15/18 16:13 PT RESTING COMFORTABLY, LABS DISCUSSED. DISCUSSED PLAN TO DISCHARGE HOME AFTER KAYEXALATE AND FLUIDS. PT TO FOLLOW UP WITH DR. JULIAN AN OUTPATIENT. - Results/Orders Results/Orders: Laboratory Tests 06/15/18 06/15/18 06/15/18 12:15 12:45 13:04 WBC 25.1 H* RBC 3.91 L Hgb 10.3 L Hct 33.2 L MCV 84.9 MCH 26.3 L MCHC 30.9 L RDW 17.6 H Plt Count 183 MPV 8.8 Absolute Neuts (auto) 22.20 H Absolute Lymphs (auto) 1.50 Absolute Monos (auto) 1.30 H Absolute Eos (auto) 0.00 Absolute Basos (auto) 0.00 Neutrophils % 88.7 H Neutrophils % (Manual) 88.0 H Lymphocytes % 5.9 L Lymphocytes % (Manual) 4.0 Monocytes % 5.2 Monocytes % (Manual) 1.0 Eosinophils % 0.0 L Basophils % 0.2 Band Neutrophils 7.0 H Platelet Estimate Normal Sodium Potassium Chloride Carbon Dioxide Anion Gap BUN Creatinine BUN/Creatinine Ratio Random Glucose Serum Osmolality Calcium Total Bilirubin Direct Bilirubin Indirect Bilirubin AST ALT Alkaline Phosphatase Serum Total Protein Albumin Serum HCG, Qual Negative Urine Color Yellow Urine Appearance Sl cloudy Urine pH 5.0 Ur Specific [place] 1.015 Urine Protein 100 H Urine Glucose (UA) 100 H Urine Ketones Negative Urine Blood Large H Urine Nitrite Negative Urine Bilirubin Negative Urine Urobilinogen 0.2 Ur Leukocyte Esterase Negative Urine RBC >50 H Urine WBC 0 Ur Epithelial Cells 1-3 Urine Bacteria Rare 06/15/18 13:04 WBC RBC Hgb Hct MCV MCH MCHC RDW Plt Count MPV Absolute Neuts (auto) Absolute Lymphs (auto) Absolute Monos (auto) Absolute Eos (auto) Absolute Basos (auto) Neutrophils % Neutrophils % (Manual) Lymphocytes % Lymphocytes % (Manual) Monocytes % Monocytes % (Manual) Eosinophils % Basophils % Band Neutrophils Platelet Estimate Sodium 138 Potassium 5.3 H Chloride 106 Carbon Dioxide 22 Anion Gap 15.3 BUN 73 H Creatinine 4.23 H BUN/Creatinine Ratio 17.3 Random Glucose 130 H Serum Osmolality 299.0 H Calcium 8.5 Total Bilirubin 0.3 Direct Bilirubin < 0.1 Indirect Bilirubin 0.2 AST 13 ALT 23 Alkaline Phosphatase 61 D Serum Total Protein 6.1 L Albumin 2.6 L Serum HCG, Qual Urine Color Urine Appearance Urine pH Ur Specific [place] Urine Protein Urine Glucose (UA) Urine Ketones Urine Blood Urine Nitrite Urine Bilirubin Urine Urobilinogen Ur Leukocyte Esterase Urine RBC Urine WBC Ur Epithelial Cells Urine Bacteria - EKG/XRAY/CT EKG: Surya - @58BPM, NL INTERVALS, NL AXIS, Sinus, no ST T wave changes, Unchanged from - 06/12/18 - Additional EKG/XRAY/Consults Time Called: 15:16 Consult/PCP: CASE DISCUSSED WITH EBENEZER JAMES WHO THEN CONTACTED DR. JULIAN ( BOX INSPECTOR) Reason/Comments: DR. JULIAN RECOMMENDS D/C HOME AFTER KAYEXALATE. Departure - Departure Clinical Impression: Chronic renal disease, History of vasculitis, Hyperkalemia Time of Disposition: 16:16 Disposition: Discharge to Home or Self Care Condition: Fair Departure Forms: ED Discharge - Pt. Copy, Patient Portal Self Enrollment Instructions: Hyperkalemia (DC) Referrals: RUBI JULIAN [Primary Care Provider] - 1-5 Days Home Medications: Ambulatory Orders Citalopram Hydrobromide [Citalopram] 20 mg PO DAILY 05/25/18 Ondansetron Inj [Zofran Inj] 4 mg IV Q6H PRN vial 05/30/18 predniSONE 60 mg PO DAILY 06/12/18
[2018-06-15] MEDS: SOD POLYSTYRENE SULFONATE 15 GM/60 ML BTTL PO ONE (13:54)
[2018-06-15] MEDS: SODIUM CHLORIDE 0.9% (FLUSH) 10 ML SYG IV PRN (13:54)
[2018-06-15] MEDS: SODIUM CHLORIDE 0.9% 1000ML 1,000 ML IVS PRN (13:55)
[2018-06-15 14:10] VITALS: O2SAT 98
[2018-06-15 17:16] VITALS: BP 127/70; TEMP 98.4
== END 2018-06-15 17:16 | disposition home or self-care (01) ==
LOC: ER 11:52
DX: E87.5 Hyperkalemia (principal); N18.9 Chronic kidney disease, unspecified; I77.6 Arteritis, unspecified; R00.1 Bradycardia, unspecified; F32.9 Major depressive disorder, single episode, unspecified
CPT/HCPCS: 36415; 80048; 80076; 81001; 84703; 85025; 93005; J7030

== ENCOUNTER 2018-06-22 23:30 | Emergency (ER) | payer SELFPAY ==
[2018-06-23 00:53] VITALS: O2SAT 99
[2018-06-23] MEDS ORDERED: levoFLOXacin 500 MG TAB PO ONE (01:22)
--- NOTE | 2018-06-23 01:24 | ED.PDOC ---
History of Present Illness - General Chief Complaint: ENT Problem Stated Complaint: sore throat, congestion Time Seen by Provider: 06/22/18 23:48 Source: patient Exam Limitations: no limitations - History of Present Illness Initial Comments: the patient is a 33-year-old female presenting to emergency room secondary to a mild sore throat starting earlier in the day. 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 No other new symptoms. No shortness of breath. No chest pain. No new urinary symptoms. Just a mild sore throat and a mild runny nose. Physical exam shows mucosa consistent with a viral upper respiratory tract infection. Timing/Duration: 24 hours Severity: severe Improving Factors: nothing Worsening Factors: nothing, movement Associated Symptoms: denies symptoms Allergies/Adverse Reactions: Allergies NO KNOWN ALLERGY Allergy (Verified 06/12/18 17:06) Home Medications: Ambulatory Orders Citalopram Hydrobromide [Citalopram] 20 mg PO DAILY 05/25/18 Ondansetron Inj [Zofran Inj] 4 mg IV Q6H PRN vial 05/30/18 predniSONE 60 mg PO DAILY 06/12/18 Levofloxacin [Levaquin] 250 mg PO DAILY #10 tablet 06/23/18 Review of Systems - Review of Systems Constitutional: States: malaise EENTM: States: see HPI Respiratory: States: no symptoms reported Cardiology: States: no symptoms reported Gastrointestinal/Abdominal: States: no symptoms reported Genitourinary: States: no symptoms reported Musculoskeletal: States: no symptoms reported Skin: States: no symptoms reported Neurological: States: no symptoms reported Endocrine: States: no symptoms reported All other Systems: No Change from Baseline Past Medical History (General) - Patient Medical History Hx Seizures: No Hx Stroke: No Hx Dementia: No Hx Asthma: No Hx of COPD: No Hx Cardiac Disorders: No Hx Congestive Heart Failure: No Hx Pacemaker: No Hx Hypertension: No Hx Thyroid Disease: No Hx Diabetes: No Hx Gastroesophageal Reflux: No 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 Hx Cancer: No Hx of HIV: No Hx Hepatitis C: No Hx MRSA: No Surgical History: other - Vaccination History Hx Tetanus, Diphtheria Vaccination: No Hx Influenza Vaccination: No Hx Pneumococcal Vaccination: No - Social History Hx Tobacco Use: No Hx Chewing Tobacco Use: No Hx Alcohol Use: No Hx Substance Use: No Hx Substance Use Treatment: No Hx Depression: Yes Hx Physical Abuse: No Hx Emotional Abuse: No Hx Suspected Abuse: No - Female History Hx Last Menstrual Period: 05/19/18 Patient : No Family Medical History - Family History Mother Family History: No Known Living Status: Still Living Hx Family Hypertension: Yes Physical Exam - Physical Exam General Appearance: Alert, Comfortable, No apparent distress Eye Exam: bilateral normal Ears, Nose, Throat: nasal congestion, pharyngeal erythema - No oral lesions. No petechia. Mild erythema. Neck: non-tender, full range of motion, supple Respiratory: chest non-tender, lungs clear, normal breath sounds, no respiratory distress, no accessory muscle use Cardiovascular/Chest: normal peripheral pulses, regular rate, rhythm, no edema Peripheral Pulses: radial,right: 2+, radial,left: 2+, dorsalis pedis,right: 2+, dorsalis pedis,left: 2+ Gastrointestinal/Abdominal: non tender, soft Back Exam: normal inspection, no CVA tenderness Extremity: normal range of motion, non-tender, normal inspection, no pedal edema , normal capillary refill Neurologic: tobacco prizer II-XII nml as tested, alert, normal mood/affect, oriented x 3 Skin Exam: normal color - mild bruising from previous blood draws Comments: Vital Signs - 24 hr 06/22/18 06/23/18 23:46 00:51 Temperature 99.5 F 100.0 F H Pulse Rate [ 117 H 98 H left] Respiratory 18 16 Rate Blood Pressure 146/81 139/69 [left] O2 Sat by Pulse 100 99 Oximetry Progress - Progress Progress: 06/23/18 01:24 the patient is a 33-year-old female with a recent diagnosis of Ezequiel 's granulomatosis presenting secondary to symptoms of a sore throat and a mild runny nose. The patient is immunosuppressed due to medications for treatment of above issues. The patient has tested negative for flu and strep throat. Given her renal function she will be placed on low-dose Levaquin once daily for 10 days. She does need to keep follow-up with rheumatology and nephrology. ER warnings were given. Saline nasal spray is also recommended. Departure - Departure Clinical Impression: Viral upper respiratory tract infection, Immunocompromised state Disposition: Discharge to Home or Self Care Condition: Fair Departure Forms: ED Discharge - Pt. Copy, Patient Portal Self Enrollment Instructions: Viral Upper Respiratory Infection, Adult (DC), Vasculitis (DC) Diet: regular diet Activity: increase activity as tolerated Referrals: RUBI JULIAN [Primary Care Provider] - 1-2 Weeks Prescriptions: Levofloxacin [Levaquin] 250 mg PO DAILY #10 tablet Home Medications: Ambulatory Orders Citalopram Hydrobromide [Citalopram] 20 mg PO DAILY 05/25/18 Ondansetron Inj [Zofran Inj] 4 mg IV Q6H PRN vial 05/30/18 predniSONE 60 mg PO DAILY 06/12/18 Levofloxacin [Levaquin] 250 mg PO DAILY #10 tablet 06/23/18 Additional Instructions: the patient is a 33-year-old female with a recent diagnosis of Ezequiel 's granulomatosis presenting secondary to symptoms of a sore throat and a mild runny nose. The patient is immunosuppressed due to medications for treatment of above issues. The patient has tested negative for flu and strep throat. Given her renal function she will be placed on low-dose Levaquin once daily for 10 days. She does need to keep follow-up with rheumatology and nephrology. ER warnings were given. Saline nasal spray is also recommended.
[2018-06-23 01:37] VITALS: BP 137/85; TEMP 99.2
== END 2018-06-23 01:36 | disposition home or self-care (01) ==
LOC: ER 23:30
DX: J06.9 Acute upper respiratory infection, unspecified (principal); D89.9 Disorder involving the immune mechanism, unspecified; M31.30 Wegener's granulomatosis without renal involvement; Z79.899 Other long term (current) drug therapy

== ENCOUNTER 2018-08-25 16:47 | Emergency (ER) | payer SELFPAY ==
--- NOTE | 2018-08-25 18:45 | ED.PDOC ---
History of Present Illness - General Chief Complaint: General Time Seen by Provider: 08/25/18 17:00 Source: RN notes reviewed, family Exam Limitations: no limitations Additional Information: 33 YEAR OLD PRESENTS TO THE ED WITH COMPLAINTS OF RIGHT CALF PAIN X 5 DAYS NO SWELLING NO ASSOCIATED CHEST PAIN NO SHORTNESS OF BREATH HER RISK FOR DVT IS HER MOTHER IS POSITIVE FOR FACTOR LEYDEN DEFICIENCY PATIENT WAS ALSO TESTED BUT HERS WAS NEGATIVE SHE OTHERWISE DOES NOT HAVE THROMBOTIC RISK FACTORS - History of Present Illness Timing/Duration: 1 week Severity: mild Improving Factors: nothing Worsening Factors: nothing Associated Symptoms: denies symptoms Allergies/Adverse Reactions: Allergies NO KNOWN ALLERGY Allergy (Verified 06/12/18 17:06) Home Medications: Ambulatory Orders Citalopram Hydrobromide [Citalopram] 10 mg PO DAILY 05/25/18 predniSONE 10 mg PO DAILY 06/12/18 Cetirizine HCl [ZyrTEC] 10 mg PO DAILY 08/25/18 Pantoprazole Sodium 40 mg PO DAILY 08/25/18 Review of Systems - Review of Systems Constitutional: States: no symptoms reported EENTM: States: no symptoms reported Respiratory: States: no symptoms reported Cardiology: States: no symptoms reported Gastrointestinal/Abdominal: States: no symptoms reported Genitourinary: States: no symptoms reported Skin: States: no symptoms reported Neurological: States: no symptoms reported Endocrine: States: no symptoms reported Hematologic/Lymphatic: States: no symptoms reported Past Medical History (General) - Patient Medical History Hx Seizures: No Hx Stroke: No Hx Dementia: No Hx Asthma: No Hx of COPD: No Hx Cardiac Disorders: No Hx Congestive Heart Failure: No Hx Pacemaker: No Hx Hypertension: No Hx Thyroid Disease: No Hx Diabetes: No Hx Gastroesophageal Reflux: No 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 Adwoa GPA Hx Cancer: No Hx of HIV: No Hx Hepatitis C: No Hx MRSA: No Surgical History: other - Vaccination History Hx Tetanus, Diphtheria Vaccination: Yes Hx Influenza Vaccination: Yes Hx Pneumococcal Vaccination: No - Social History Hx Tobacco Use: No Hx Chewing Tobacco Use: No Hx Alcohol Use: No Hx Substance Use: No Hx Substance Use Treatment: No Hx Depression: Yes Hx Physical Abuse: No Hx Emotional Abuse: No Hx Suspected Abuse: No - Female History Hx Last Menstrual Period: 05/19/18 Patient : No Family Medical History - Family History Mother Family History: No Known Living Status: Still Living Hx Family Hypertension: Yes Physical Exam - Physical Exam General Appearance: Alert, Comfortable Eye Exam: bilateral normal Ears, Nose, Throat: hearing grossly normal, normal ENT inspection, normal pharynx, abnormal TM (R) Neck: non-tender, full range of motion, supple Respiratory: chest non-tender, lungs clear, normal breath sounds, no respiratory distress, no accessory muscle use, respiratory distress Peripheral Pulses: radial,right: 2+, radial,left: 2+, femoral,right: 2+, femoral,left: 2+, dorsalis pedis,right: 2+, dorsalis pedis,left: 2+ Gastrointestinal/Abdominal: normal bowel sounds, non tender, soft, no organomegaly, no pulsatile mass Back Exam: normal inspection, no CVA tenderness, no vertebral tenderness Neurologic: irrigation supervisor II-XII nml as tested, no motor/sensory deficits, alert, normal mood/affect, oriented x 3 Skin Exam: normal color, warm/dry Progress - Results/Orders Results/Orders: Laboratory Tests 08/25/18 08/25/18 17:27 17:27 WBC 10.8 RBC 4.17 L Hgb 12.1 Hct 36.3 MCV 87.1 MCH 29.0 MCHC 33.3 RDW 16.4 H Plt Count 196 MPV 7.7 Absolute Neuts (auto) 10.30 H Absolute Lymphs (auto) 0.20 L Absolute Monos (auto) 0.20 Absolute Eos (auto) 0.00 Absolute Basos (auto) 0.00 Neutrophils % 95.7 H Lymphocytes % 2.0 L Monocytes % 2.2 Eosinophils % 0.1 L Basophils % 0.0 D-Dimer, Quantitative 15.20 H* Laboratory Tests 08/25/18 08/25/18 08/25/18 17:27 17:27 18:51 WBC 10.8 RBC 4.17 L Hgb 12.1 Hct 36.3 MCV 87.1 MCH 29.0 MCHC 33.3 RDW 16.4 H Plt Count 196 MPV 7.7 Absolute Neuts (auto) 10.30 H Absolute Lymphs (auto) 0.20 L Absolute Monos (auto) 0.20 Absolute Eos (auto) 0.00 Absolute Basos (auto) 0.00 Neutrophils % 95.7 H Lymphocytes % 2.0 L Monocytes % 2.2 Eosinophils % 0.1 L Basophils % 0.0 D-Dimer, Quantitative 15.20 H* Sodium 135 Potassium 4.6 Chloride 99 L Carbon Dioxide 23 Anion Gap 17.6 BUN 35 H Creatinine 2.69 H BUN/Creatinine Ratio 13.0 Random Glucose 137 H Serum Osmolality 280.2 Calcium 8.5 Total Bilirubin 0.7 AST 21 ALT 24 Alkaline Phosphatase 62 Serum Total Protein 6.1 L Albumin 3.0 L Globulin 3.1 Albumin/Globulin Ratio 1.0 L HER CALF GIRTH MEASURES THE SAME ON BOTH RIGHT AND LEFT SIDE Departure - Departure Clinical Impression: Chronic kidney disease, Right leg pain Time of Disposition: 19:25 Disposition: Discharge to Home or Self Care Condition: Good Departure Forms: ED Discharge - Pt. Copy, Patient Portal Self Enrollment Diet: resume usual diet Referrals: Delmi Redd NP [Primary Care Provider] - 1-2 Weeks Home Medications: Ambulatory Orders Citalopram Hydrobromide [Citalopram] 10 mg PO DAILY 05/25/18 predniSONE 10 mg PO DAILY 06/12/18 Cetirizine HCl [ZyrTEC] 10 mg PO DAILY 08/25/18 Pantoprazole Sodium 40 mg PO DAILY 08/25/18 Comments: PT WAS ADVISED TO GET A DOPPLER AT [facility] TOMORROW MORNING
[2018-08-25 19:38] VITALS: BP 123/79; TEMP 98.4; O2SAT 98
== END 2018-08-25 19:35 | disposition home or self-care (01) ==
LOC: ER 16:47
DX: M79.661 Pain in right lower leg (principal); N18.9 Chronic kidney disease, unspecified; F32.9 Major depressive disorder, single episode, unspecified

== ENCOUNTER 2018-08-30 07:25 | Emergency (ER) | payer SELFPAY ==
[2018-08-30] MEDS ORDERED: SODIUM CHLORIDE 0.9% 1000ML 1,000 ML IVS ONE ×2 (07:55→09:55)
--- NOTE | 2018-08-30 07:55 | ED.PDOC ---
History of Present Illness - General Chief Complaint: General Stated Complaint: flu-like symptoms Time Seen by Provider: 08/30/18 07:49 Source: patient Exam Limitations: no limitations - History of Present Illness Initial Comments: PT'S DAUGHTER RECENTLY DIAGNOSED WITH INFLUENZA. 1 DAY HX HIGGINS, FEVER, GENERAL MALAISE, NAUSEA. SHE IS ON ANTIBIOLOGICS AND WANTED TO BE EVALUATED. Timing/Duration: other - 1 DAY Severity: moderate Improving Factors: nothing Worsening Factors: nothing Associated Symptoms: denies symptoms Allergies/Adverse Reactions: Allergies NO KNOWN ALLERGY Allergy (Verified 06/12/18 17:06) Home Medications: Ambulatory Orders Citalopram Hydrobromide [Citalopram] 10 mg PO DAILY 05/25/18 predniSONE 30 mg PO DAILY 06/12/18 Cetirizine HCl [ZyrTEC] 10 mg PO DAILY 08/25/18 Pantoprazole Sodium 40 mg PO DAILY 08/25/18 Amoxicillin & Pot Clavulanate [Augmentin] 1 tab PO BID #20 tab 08/30/18 Oseltamivir Capsule [Tamiflu] 75 mg PO BID 5 Days #10 capsule 08/30/18 Review of Systems - Review of Systems Constitutional: States: chills, fever EENTM: States: nose congestion, throat pain. Denies: eye pain Respiratory: States: cough. Denies: short of breath Cardiology: Denies: chest pain, palpitations, syncope Gastrointestinal/Abdominal: States: nausea. Denies: abdominal pain, vomiting Genitourinary: States: no symptoms reported Musculoskeletal: States: other - MALAISE Skin: States: no symptoms reported Neurological: States: no symptoms reported Endocrine: States: no symptoms reported Hematologic/Lymphatic: States: no symptoms reported Past Medical History (General) - Patient Medical History Hx Seizures: No Hx Stroke: No Hx Dementia: No Hx Asthma: No Hx of COPD: No Hx Cardiac Disorders: No Hx Congestive Heart Failure: No Hx Pacemaker: No Hx Hypertension: No Hx Thyroid Disease: No Hx Diabetes: No Hx Gastroesophageal Reflux: No 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 Biancaner GPA Hx Cancer: No Hx of HIV: No Hx Hepatitis C: No Hx MRSA: No - Vaccination History Hx Tetanus, Diphtheria Vaccination: Yes Hx Influenza Vaccination: Yes Hx Pneumococcal Vaccination: No - Social History Hx Tobacco Use: No Hx Chewing Tobacco Use: No Hx Alcohol Use: No Hx Substance Use: No Hx Substance Use Treatment: No Hx Depression: Yes Hx Physical Abuse: No Hx Emotional Abuse: No Hx Suspected Abuse: No - Female History Hx Last Menstrual Period: 05/19/18 Patient : No Family Medical History - Family History Mother Family History: No Known Living Status: Still Living Hx Family Hypertension: Yes Physical Exam - Physical Exam General Appearance: Alert, No apparent distress Eye Exam: bilateral normal Ears, Nose, Throat: normal ENT inspection, normal pharynx, other - TMS NL Neck: non-tender, full range of motion, supple, normal inspection Respiratory: lungs clear, normal breath sounds Cardiovascular/Chest: regular rate, rhythm, no murmur Gastrointestinal/Abdominal: non tender, soft, no organomegaly Back Exam: normal inspection, no CVA tenderness, no vertebral tenderness Extremity: normal range of motion, non-tender, normal inspection Neurologic: normal mood/affect, oriented x 3 Skin Exam: normal color, warm/dry Lymphatic: no adenopathy Progress - Progress Progress: 08/30/18 09:45 PULSE IMPROVED, AFEBRILE, REVIEWED OLD LAB, WBC NL, HAD CHRONIC KIDNEY INJURY WHICH IS STABLE, INFLUENZA NEG BUT FAMILY FLU+, DOES HAVE SIGNIFICANT SINUS TTP. WILL RX TAMIFLU AND TX SINUSITIS WITH ABX SECONDARY TO ANTIBIOLOGICS. Departure - Departure Clinical Impression: Febrile illness, acute Chronic kidney disease Qualifiers: Chronic kidney disease stage: unspecified stage Qualified Code(s): N18.9 - Chronic kidney disease, unspecified ICD-10 Supporting Text: DDX: INFLUENZA VS SINUSITIS Time of Disposition: 09:49 Disposition: Discharge to Home or Self Care Condition: Good Departure Forms: ED Discharge - Pt. Copy, Patient Portal Self Enrollment Instructions: Flu, Sinusitis in Adults Referrals: Delmi Redd NP [Primary Care Provider] - 1-2 Weeks Prescriptions: Amoxicillin & Pot Clavulanate [Augmentin] 1 tab PO BID #20 tab Oseltamivir Capsule [Tamiflu] 75 mg PO BID 5 Days #10 capsule Home Medications: Ambulatory Orders Citalopram Hydrobromide [Citalopram] 10 mg PO DAILY 05/25/18 predniSONE 30 mg PO DAILY 06/12/18 Cetirizine HCl [ZyrTEC] 10 mg PO DAILY 08/25/18 Pantoprazole Sodium 40 mg PO DAILY 08/25/18 Amoxicillin & Pot Clavulanate [Augmentin] 1 tab PO BID #20 tab 08/30/18 Oseltamivir Capsule [Tamiflu] 75 mg PO BID 5 Days #10 capsule 08/30/18
[2018-08-30] MEDS ORDERED: cefTRIAXone SODIUM 1 GM in SODIUM CHL 0.9% 50ML MIN-BAG+ 50 ML IVPB ONE (09:44)
[2018-08-30] MEDS ORDERED: cefTRIAXone SODIUM 1 GM VIAL ONE (09:45)
[2018-08-30] MEDS ORDERED: SODIUM CHL 0.9% 50ML MIN-BAG+ 50 ML IVPB ONE (09:45)
[2018-08-30 10:08] VITALS: TEMP 99.8
[2018-08-30 11:55] VITALS: BP 143/90; O2SAT 98
== END 2018-08-30 10:42 | disposition home or self-care (01) ==
LOC: ER 07:25
DX: R50.9 Fever, unspecified (principal); N18.9 Chronic kidney disease, unspecified; F32.9 Major depressive disorder, single episode, unspecified
CPT/HCPCS: 36415; 80048; 85025; 87502; J0696; J7030; J7050

== ENCOUNTER 2018-12-14 23:23 | Emergency (ER) | payer SELFPAY ==
[2018-12-14 23:54] VITALS: TEMP 98.4; O2SAT 98
--- NOTE | 2018-12-14 23:54 | ED.PDOC ---
History of Present Illness - General Chief Complaint: Abdominal Pain Stated Complaint: cramping, abd pain Time Seen by Provider: 12/14/18 23:28 Information Source: patient Exam Limitations: no limitations - History of Present Illness Initial Comments: patient comes in for 2 hour history of upper quadrant abdominal cramping and pain with some loose stools. 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 For that reason her doctor wants her to come in anytime there "is anything weird or abnormal" occurring. Patient has chronic loose stools and states she has not had a normal BM since April. She denies any emesis or nausea. She has no fever, chills, cough, or cold symptoms. She had blood work done last week that she brings in for comparison. She has a past medical history for depression and restless leg syndrome as well as Yin's. Abdominal Pain Onset Location: epigastric, generalized abdomen Pain Radiation: no radiation Quality: moderate, cramping Timing/Duration: 1-3 hours Improving Factors: nothing Worsening Factors: nothing Associated Symptoms: diarrhea Review of Systems - Review of Systems Constitutional: States: no symptoms reported. Denies: chills, diaphoresis, fever, weakness EENTM: States: no symptoms reported. Denies: blurred vision, ear pain, nose pain Respiratory: States: no symptoms reported. Denies: cough, short of breath Cardiology: States: no symptoms reported. Denies: chest pain, edema, palpitations Gastrointestinal/Abdominal: States: see HPI, abdominal pain, diarrhea. Denies: nausea, vomiting Genitourinary: States: no symptoms reported Musculoskeletal: States: no symptoms reported Past Medical History (General) - Patient Medical History Hx Seizures: No Hx Stroke: No Hx Dementia: No Hx Asthma: No Hx of COPD: No Hx Cardiac Disorders: No Hx Congestive Heart Failure: No Hx Pacemaker: No Hx Hypertension: No Hx Thyroid Disease: No Hx Diabetes: No Hx Gastroesophageal Reflux: No 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 Adwoa GPA Hx Cancer: No Hx of HIV: No Hx Hepatitis C: No Hx MRSA: No - Vaccination History Hx Tetanus, Diphtheria Vaccination: Yes Hx Influenza Vaccination: Yes Hx Pneumococcal Vaccination: No - Social History Hx Tobacco Use: No Hx Chewing Tobacco Use: No Hx Alcohol Use: No Hx Substance Use: No Hx Substance Use Treatment: No Hx Depression: Yes Hx Physical Abuse: No Hx Emotional Abuse: No Hx Suspected Abuse: No - Female History Hx Last Menstrual Period: 05/19/18 Patient : No Family Medical History - Family History Mother Family History: No Known Living Status: Still Living Hx Family Hypertension: Yes Physical Exam - Physical Exam General Appearance: Alert, Comfortable Eyes, Ears, Nose, Throat Exam: PERRL/EOMI, normal ENT inspection, TMs normal, pharynx normal Neck: non-tender, full range of motion, supple, normal inspection Respiratory: chest non-tender, lungs clear, normal breath sounds, no respiratory distress, no accessory muscle use Cardiovascular/Chest: normal peripheral pulses, regular rate, rhythm, no edema, no gallop, no JVD, no murmur Peripheral Pulses: No deficit Gastrointestinal/Abdominal: normal bowel sounds, soft, tenderness - TTP to diffuse upper quadrants and epigastric region with no distention and no rebound no guarding Back Exam: no CVA tenderness Neurologic: no motor/sensory deficits, alert, oriented x 3 Progress - Progress Progress: 12/15/18 00:49 patient is doing better with decreased cramping and no acute complaints. discussed normal exams at this time. - Results/Orders Results/Orders: Laboratory Results WBC 7.3 K/mm3 (4.8-10.8) 12/14/18 23:49 RBC 4.20 M/mm3 (4.20-5.40) 12/14/18 23:49 Hgb 12.1 gm/dL (12.0-16.0) 12/14/18 23:49 Hct 37.0 % (36.0-47.0) 12/14/18 23:49 MCV 88.1 fl (81.0-99.0) 12/14/18 23:49 MCH 28.9 pg (27.0-31.0) 12/14/18 23:49 MCHC 32.8 g/dL (33.0-37.0) L 12/14/18 23:49 RDW 12.2 % (11.5-14.5) 12/14/18 23:49 Plt Count 268 K/mm3 (130-400) 12/14/18 23:49 MPV 8.8 fl (7.40-10.4) 12/14/18 23:49 Absolute Neuts (auto) 5.00 K/uL (1.8-6.8) 12/14/18 23:49 Absolute Lymphs (auto) 1.30 K/uL (1.0-3.4) 12/14/18 23:49 Absolute Monos (auto) 0.70 K/uL (0.2-0.8) 12/14/18 23:49 Absolute Eos (auto) 0.20 K/uL (0.0-0.4) 12/14/18 23:49 Absolute Basos (auto) 0.10 K/uL (0.0-0.1) 12/14/18 23:49 Neutrophils % 68.0 % (42.0-78.0) 12/14/18 23:49 Lymphocytes % 18.0 % (20.0-50.0) L 12/14/18 23:49 Monocytes % 9.9 % (2.0-9.0) H 12/14/18 23:49 Eosinophils % 3.2 % (1.0-5.0) 12/14/18 23:49 Basophils % 0.9 % (0.0-2.0) 12/14/18 23:49 Sodium 139 mmol/L (135-145) 12/14/18 23:49 Potassium 3.6 mmol/L (3.6-5.0) 12/14/18 23:49 Chloride 110 mmol/L (101-111) 12/14/18 23:49 Carbon Dioxide 21 mmol/L (21-31) 12/14/18 23:49 Anion Gap 11.6 (12-18) L 12/14/18 23:49 BUN 21 mg/dL (7-18) H 12/14/18 23:49 Creatinine 2.04 mg/dL (0.6-1.3) H 12/14/18 23:49 BUN/Creatinine Ratio 10.3 (10-20) 12/14/18 23:49 Random Glucose 91 mg/dL (70-105) 12/14/18 23:49 Serum Osmolality 280.1 mOsm/L (275-295) 12/14/18 23:49 Calcium 8.6 mg/dL (8.4-10.2) 12/14/18 23:49 Total Bilirubin 0.2 mg/dL (0.2-1.0) 12/14/18 23:49 AST 23 IU/L (10-42) 12/14/18 23:49 ALT 21 IU/L (10-60) 12/14/18 23:49 Alkaline Phosphatase 60 IU/L (42-121) 12/14/18 23:49 Serum Total Protein 6.3 gm/dL (6.4-8.2) L 12/14/18 23:49 Albumin 3.5 g/dl (3.2-5.5) 12/14/18 23:49 Globulin 2.8 gm/dL (2.3-3.5) 12/14/18 23:49 Albumin/Globulin Ratio 1.3 (1.1-1.9) 12/14/18 23:49 Amylase 79 U/L (28-100) 12/14/18 23:49 Lipase 33 U/L (22-51) 12/14/18 23:49 Departure - Departure Clinical Impression: Diarrhea Qualifiers: Diarrhea type: unspecified type Qualified Code(s): R19.7 - Diarrhea, unspecified Disposition: Discharge to Home or Self Care Condition: Fair Departure Forms: ED Discharge - Pt. Copy, Patient Portal Self Enrollment Instructions: DI for Abdominal Pain-Adult Referrals: Delmi Redd, [employer]LECTION ASSISTANT [Primary Care Provider] - 1-2 Weeks Home Medications: Ambulatory Orders Citalopram Hydrobromide [Citalopram] 10 mg PO DAILY 05/25/18 predniSONE 30 mg PO DAILY 06/12/18 Cetirizine HCl [ZyrTEC] 10 mg PO DAILY 08/25/18 Pantoprazole Sodium 40 mg PO DAILY 08/25/18 Amoxicillin & Pot Clavulanate [Augmentin] 1 tab PO BID #20 tab 08/30/18 Oseltamivir Capsule [Tamiflu] 75 mg PO BID 5 Days #10 capsule 08/30/18 Additional Instructions: return to ER for increased pain, fever >100.5, intractable emesis, or failure to improve in 24 hours
--- NOTE | 2018-12-15 00:11 | RAD ---
EXAM DESCRIPTION: KUB CLINICAL HISTORY: 33 years, Female, pain COMPARISON: None. FINDINGS: Nonobstructive bowel gas pattern. No abnormal calcifications. No acute osseous abnormality. IMPRESSION: No acute abnormality. Electronically signed by: Zak Staples DO 12/15/2018 12:09 AM CDT
[2018-12-15 00:55] VITALS: BP 110/70
== END 2018-12-15 00:55 | disposition home or self-care (01) ==
LOC: ER 23:23
DX: R19.7 Diarrhea, unspecified (principal); R10.13 Epigastric pain; N18.9 Chronic kidney disease, unspecified; F32.9 Major depressive disorder, single episode, unspecified; A50.02 Early congenital syphilitic osteochondropathy; Z79.899 Other long term (current) drug therapy

== ENCOUNTER 2019-03-19 06:44 | Emergency (ER) | payer SELFPAY ==
[2019-03-19] MEDS ORDERED: PIPERACILLIN/TAZOBACTAM 3.375 GM in SODIUM CHLORIDE 0.9% 100ML 100 ML IVPB ONE (07:37)
[2019-03-19] MEDS ORDERED: SODIUM CHLORIDE 0.9% 1000ML 1,000 ML IVS ONE (07:37)
[2019-03-19] MEDS ORDERED: MORPHINE SULFATE INJ 10 MG/ML VIAL IV ONE (07:38)
[2019-03-19] MEDS ORDERED: ONDANSETRON INJ 4 MG/2 ML VIAL IV ONE (07:39)
--- NOTE | 2019-03-19 07:44 | ED.PDOC ---
History of Present Illness - General Chief Complaint: Fever Stated Complaint: fever, chills Time Seen by Provider: 03/19/19 07:30 Additional Information: Pt w cc of fever, malaise beginning yesterday. Pt has h/o Wegeners Granulomatosis and her sxs are similar to when she was dx'd with it 1 year ago. Pt denies any focal sxs. Neg CP/ SOB/ AP/ dysuria/ SOB/ cough. Pt reports 4/10 diffuse body pain, "achy". Review of Systems - Review of Systems Constitutional: States: see HPI, fever, malaise. Denies: diaphoresis EENTM: States: no symptoms reported Respiratory: States: no symptoms reported. Denies: cough, orthopnea, short of breath Cardiology: States: no symptoms reported. Denies: chest pain Gastrointestinal/Abdominal: States: no symptoms reported. Denies: abdominal pain, nausea, vomiting Genitourinary: States: no symptoms reported. Denies: dysuria, hematuria Musculoskeletal: Denies: joint swelling, muscle stiffness, neck pain Skin: States: no symptoms reported Neurological: States: no symptoms reported. Denies: headache Endocrine: States: no symptoms reported Hematologic/Lymphatic: States: no symptoms reported All other Systems: Reviewed and Negative Past Medical History (General) - Patient Medical History Hx Seizures: No Hx Stroke: No Hx Dementia: No Hx Asthma: No Hx of COPD: No Hx Cardiac Disorders: No Hx Congestive Heart Failure: No Hx Pacemaker: No Hx Hypertension: No Hx Thyroid Disease: No Hx Diabetes: No Hx Gastroesophageal Reflux: No 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 Adwoa GPA Hx Cancer: No Hx of HIV: No Hx Hepatitis C: No Hx MRSA: No - Vaccination History Hx Tetanus, Diphtheria Vaccination: Yes Hx Influenza Vaccination: Yes Hx Pneumococcal Vaccination: No - Social History Hx Tobacco Use: No Hx Chewing Tobacco Use: No Hx Alcohol Use: No Hx Substance Use: No Hx Substance Use Treatment: No Hx Depression: Yes Hx Physical Abuse: No Hx Emotional Abuse: No Hx Suspected Abuse: No - Female History Hx Last Menstrual Period: 05/19/18 Patient : No - Triage Comment ED Triage Comment: states has Wegeners disease and feeling nausea, chills and has fever. Family Medical History - Family History Mother Family History: No Known Living Status: Still Living Hx Family Hypertension: Yes Physical Exam - Physical Exam General Appearance: Alert, Ill Appearing, Other - generally weak Eye Exam: bilateral normal ENT Exam: normal ENT inspection, pharynx normal Neck: non-tender, full range of motion, supple, trachea midline Respiratory: lungs clear, normal breath sounds, no respiratory distress Cardiovascular/Chest: no edema, no murmur, tachycardia Gastrointestinal/Abdominal: normal bowel sounds, tenderness - mild diffuse Extremity: normal range of motion, non-tender Neurologic: mold chipper II-XII nml as tested, normal mood/affect, oriented x 3 Skin Exam: normal color, warm/dry Lymphatic: no adenopathy Progress - Progress Progress: 03/19/19 09:33 DDx: Sepsis, PNA, Pyelo, Wegeners exacerbation Pt reassessed and not feeling any better, she remains ill appearing. Her UA is suggestive of pyelo in the setting of fever to 102. Pt remains tachy. IVF and IV Zosyn given. Lactate is not elevated but clinically I suspect sepsis. Creatinine is elevated at 1.94 but this is baseline for pt. Pt see's a organic section technical lead at [facility], Dr. Daugherty, for her Wegeners and pt requests transfer to [place] for care. Her CXR is clear. VSS, and pt is medically clear for transfer. 03/19/19 10:15 D/w Dr. Teresa, hospitalist, [facility], who accepts pt in transfer. 03/19/19 10:23 - EKG/XRAY/CT EKG: Sinus, Tachy, nonspecific ST T wave Chg Departure - Departure Clinical Impression: Pyelonephritis, Severe sepsis without septic shock Time of Disposition: 10:22 Disposition: Transfer to Hospital Condition: Fair Departure Forms: ED Discharge - Pt. Copy, Patient Portal Self Enrollment Home Medications: Ambulatory Orders Citalopram Hydrobromide [Citalopram] 10 mg PO DAILY 05/25/18 Cetirizine HCl [ZyrTEC] 10 mg PO DAILY 08/25/18 Fluticasone Furoate [Flonase Sensimist] 1 spray OBDULIO PRN 03/19/19 Hydroxyzine HCl 10 mg PO Q6H 03/19/19 Montelukast [Singulair] 10 mg PO DAILY 03/19/19 Pramipexole Dihydrochloride [Mirapex] 0.125 mg PO BEDTIME 03/19/19 Ranitidine HCl [Ranitidine 75] 75 mg PO PRN 03/19/19 Triamcinolone 0.1% Oint [Kenalog 0.1% Ointment] 1 applic TOP PRN 03/19/19 Transfer to Outside Facility - Transfer Information Accepting Provider:: Dr. Teresa Accepting Facility: [facility] Reason for Transfer: Pt request
[2019-03-19] MEDS ORDERED: PIPERACILLIN/TAZOBACTAM 3.375 GM VIAL IVPB ONE (08:12)
[2019-03-19] MEDS ORDERED: SODIUM CHLORIDE 0.9% 100ML 100 ML IVPB ONE (08:13)
--- NOTE | 2019-03-19 08:13 | RAD ---
EXAM: XR Chest, 1 View CLINICAL HISTORY: Fever TECHNIQUE: Frontal view of the chest. COMPARISON: 04/27/2018. FINDINGS: Limitations: None. Lungs: Unremarkable. No consolidation. Pleural space: Unremarkable. No pneumothorax. Heart: Unremarkable. No cardiomegaly. Mediastinum: Unremarkable. Bones/joints: Unremarkable. IMPRESSION: No acute findings. Electronically signed by: Seema Coburn MD 03/19/2019 8:11 AM CDT
[2019-03-19 12:34] VITALS: O2SAT 97
[2019-03-19 12:58] VITALS: BP 129/74; TEMP 98.4
== END 2019-03-19 12:57 | disposition short-term general hospital (02) ==
LOC: ER 06:44
DX: R65.20 Severe sepsis without septic shock (principal); N12 Tubulo-interstitial nephritis, not specified as acute or chronic; R00.0 Tachycardia, unspecified; A50.02 Early congenital syphilitic osteochondropathy; I77.6 Arteritis, unspecified; F32.9 Major depressive disorder, single episode, unspecified; N18.9 Chronic kidney disease, unspecified
CPT/HCPCS: 36415; 71045; 80053; 81001; 83605; 85025; 87086; 93005; J2270; J2405; J2543; J7030; J7050

== ENCOUNTER 2019-05-30 22:00 | Emergency (ER) | payer SELFPAY ==
[2019-05-30 22:23] VITALS: BP 109/85; TEMP 98.5; O2SAT 100
--- NOTE | 2019-05-30 22:55 | ED.PDOC ---
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 Denies f/c, flank pain, vag sx, hematuria. Hx of kidney infection recently treated with cipro, because of her immunocompromised state she is very conservative with wanting to catch infections early and therefore presented to the ED for evaluation. Allergies/Adverse Reactions: Allergies NSAIDs Adverse Reaction (Verified 03/19/19 07:05) Home Medications: Ambulatory Orders Citalopram Hydrobromide [Citalopram] 10 mg PO DAILY 05/25/18 Cetirizine HCl [ZyrTEC] 10 mg PO DAILY 08/25/18 Fluticasone Furoate [Flonase Sensimist] 1 spray OBDULIO PRN 03/19/19 Hydroxyzine HCl 10 mg PO Q6H 03/19/19 Montelukast [Singulair] 10 mg PO DAILY 03/19/19 Pramipexole Dihydrochloride [Mirapex] 0.125 mg PO BEDTIME 03/19/19 Ranitidine HCl [Ranitidine 75] 75 mg PO PRN 03/19/19 Triamcinolone 0.1% Oint [Kenalog 0.1% Ointment] 1 applic TOP PRN 03/19/19 Nitrofurantoin Monohydrate Mac [Macrobid] 100 mg PO BID #10 capsule 05/30/19 Review of Systems - Review of Systems Constitutional: Denies: chills, fever Respiratory: Denies: cough, short of breath Cardiology: Denies: chest pain, palpitations Gastrointestinal/Abdominal: States: other - suprapubic abd discomfort. Denies: abdominal pain, constipation, diarrhea, nausea, vomiting Genitourinary: States: dysuria. 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 Hx Cancer: No Hx of HIV: No Hx Hepatitis C: No Hx MRSA: No Surgical History: other - Vaccination History Hx Tetanus, Diphtheria Vaccination: Yes Hx Influenza Vaccination: Yes Hx Pneumococcal Vaccination: No - Social History Hx Tobacco Use: No Hx Chewing Tobacco Use: No Hx Alcohol Use: No Hx Substance Use: No Hx Substance Use Treatment: No Hx Depression: Yes Hx Physical Abuse: No Hx Emotional Abuse: No Hx Suspected Abuse: No - Female History Patient is a Female of Child Bearing Age (10 -59 yrs old): No Hx Last Menstrual Period: 05/21/19 Patient : No Family Medical History - Family History Mother Family History: No Known Living Status: Still Living Hx Family Hypertension: Yes Physical Exam - Physical Exam General Appearance: Alert, Comfortable, No apparent distress, Well Developed, Well Nourished Neck: full range of motion, supple Respiratory: lungs clear, normal breath sounds, no respiratory distress, no accessory muscle use Cardiovascular/Chest: normal peripheral pulses, regular rate, rhythm, no edema, no gallop, no JVD, no murmur Gastrointestinal/Abdominal: normal bowel sounds, non tender, soft, no organomegaly, no pulsatile mass, other - Suprapubic discomfort. No distention, guarding, rebound, masses. Back Exam: normal inspection, no CVA tenderness, no vertebral tenderness Extremity: normal range of motion, non-tender, normal inspection, no pedal edema, no calf tenderness Neurologic: no motor/sensory deficits, alert, normal mood/affect, oriented x 3 Skin Exam: normal color, warm/dry Progress - Progress Progress: 05/30/19 23:14 I have explained and reviewed all results with the pt. 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 Will send urine culture. I explained that emergent conditions may arise and to return to the ER for new, worsening, or any persistent conditions. I've explained the importance of f/u for recheck. All questions and concerns addressed at this time. Pt understands and agrees with plan. Pt well appearing, NAD, is stable for discharge. Dionne Roberts MD Emergency Medicine Physician Billing Number [id number] - Results/Orders Results/Orders: 05/30/19 22:20 Urine Culture Stat Laboratory Results - last 24 hr 05/30/19 22:20 Urine Color Other Urine Appearance Clear Urine pH 5.5 Ur Specific [place] <= 1.005 Urine Protein Trace Urine Glucose (UA) Negative Urine Ketones Negative Urine Blood Trace-lysed H Urine Nitrite Negative Urine Bilirubin Negative Urine Urobilinogen 0.2 Ur Leukocyte Esterase Negative Urine RBC 0 Urine WBC 0-1 Ur Epithelial Cells 1-3 Urine Bacteria Rare Vital Signs - 24 hr 05/30/19 05/30/19 22:15 23:20 Temperature 98.5 F 98.5 F Pulse Rate [ 86 86 left] Respiratory 16 16 Rate Blood Pressure 109/85 109/85 [left] O2 Sat by Pulse 100 100 Oximetry Departure - Departure Clinical Impression: Acute cystitis without hematuria Time of Disposition: 23:13 Disposition: Discharge to Home or Self Care Health Concerns: Condition: stable Departure Forms: ED Discharge - Pt. Copy, Patient Portal Self Enrollment Instructions: DI for Urinary Tract Infection (UTI) Referrals: Adam Cuellar MD [Primary Care Provider] - 1-5 Days Prescriptions: Nitrofurantoin Monohydrate Mac [Macrobid] 100 mg PO BID #10 capsule Home Medications: Ambulatory Orders Citalopram Hydrobromide [Citalopram] 10 mg PO DAILY 05/25/18 Cetirizine HCl [ZyrTEC] 10 mg PO DAILY 08/25/18 Fluticasone Furoate [Flonase Sensimist] 1 spray OBDULIO PRN 03/19/19 Hydroxyzine HCl 10 mg PO Q6H 03/19/19 Montelukast [Singulair] 10 mg PO DAILY 03/19/19 Pramipexole Dihydrochloride [Mirapex] 0.125 mg PO BEDTIME 03/19/19 Ranitidine HCl [Ranitidine 75] 75 mg PO PRN 03/19/19 Triamcinolone 0.1% Oint [Kenalog 0.1% Ointment] 1 applic TOP PRN 03/19/19 Nitrofurantoin Monohydrate Mac [Macrobid] 100 mg PO BID #10 capsule 05/30/19 Additional Instructions: Follow up: [facility] As needed, if symptoms worsen
== END 2019-05-30 23:21 | disposition home or self-care (01) ==
LOC: ER 22:00
DX: N30.00 Acute cystitis without hematuria (principal); F32.9 Major depressive disorder, single episode, unspecified; N18.9 Chronic kidney disease, unspecified; Z79.899 Other long term (current) drug therapy; Z88.6 Allergy status to analgesic agent; Z87.440 Personal history of urinary (tract) infections

== ENCOUNTER 2019-07-02 08:55 | Emergency (ER) | payer SELFPAY ==
--- NOTE | 2019-07-02 09:02 | ED.PDOC ---
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 Onset 2 days ago, gradually worsening. Also reports ongoing congestion, rhinorrhea, and cough productive for clear phlegm and mild dyspnea. States mostly concerned about sore throat and new onset of fever of 99.9 F at home this morning. Reports with hx of Wegeners and on chemotx q6 months for control, she becomes ill quickly so she wanted evaluation this morning. Reports sore throat is to back of throat, constant, 3/10 severity, nothing tried for relief, worse with eating/drinking. No known recent sick contacts but states she works at [employer] so possibly lots of sick people around her. Denies any abd pain, n/v/d, urinary sx's, body aches, chest pain. Currently on her period. Allergies/Adverse Reactions: Allergies Piperacillin [From Zosyn] Allergy (Verified 07/02/19 09:26) Tazobactam [From Zosyn] Allergy (Verified 07/02/19 09:26) NSAIDs Adverse Reaction (Verified 03/19/19 07:05) Home Medications: Ambulatory Orders Citalopram Hydrobromide [Citalopram] 10 mg PO DAILY 05/25/18 Cetirizine HCl [ZyrTEC] 10 mg PO DAILY 08/25/18 Fluticasone Furoate [Flonase Sensimist] 1 spray OBDULIO PRN 03/19/19 Hydroxyzine HCl 10 mg PO Q6H 03/19/19 Montelukast [Singulair] 10 mg PO DAILY 03/19/19 Pramipexole Dihydrochloride [Mirapex] 0.125 mg PO BEDTIME 03/19/19 Ranitidine HCl [Ranitidine 75] 75 mg PO PRN 03/19/19 Triamcinolone 0.1% Oint [Kenalog 0.1% Ointment] 1 applic TOP PRN 03/19/19 Nitrofurantoin Monohydrate Mac [Macrobid] 100 mg PO BID #10 capsule 05/30/19 Oseltamivir Capsule [Tamiflu] 75 mg PO BID 5 Days #10 capsule 07/02/19 Review of Systems - Review of Systems Review of Systems: 07/02/19 09:14 as per HPI All other Systems: Reviewed and Negative Past Medical History (General) - Patient Medical History Hx Seizures: No Hx Stroke: No Hx Dementia: No Hx Asthma: No Hx of COPD: No Hx Cardiac Disorders: No Hx Congestive Heart Failure: No Hx Pacemaker: No Hx Hypertension: No Hx Thyroid Disease: No Hx Diabetes: No Hx Gastroesophageal Reflux: No 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 Adwoa GPA Hx Cancer: No Hx of HIV: No Hx Hepatitis C: No Hx MRSA: No - Vaccination History Hx Tetanus, Diphtheria Vaccination: Yes Hx Influenza Vaccination: Yes Hx Pneumococcal Vaccination: No - Social History Hx Tobacco Use: No Hx Chewing Tobacco Use: No Hx Alcohol Use: No Hx Substance Use: No Hx Substance Use Treatment: No Hx Depression: Yes Hx Physical Abuse: No Hx Emotional Abuse: No Hx Suspected Abuse: No - Female History Hx Last Menstrual Period: 05/21/19 Patient : No Family Medical History - Family History Mother Family History: No Known Living Status: Still Living Hx Family Hypertension: Yes Physical Exam - Physical Exam General Appearance: Alert, Comfortable, No apparent distress Eye Exam: bilateral normal Ears, Nose, Throat: hearing grossly normal, other - BL TM's normal, posterior OP with mild erythema but no tonsillar swelling or exudate Neck: non-tender, full range of motion, supple, normal inspection Respiratory: lungs clear, normal breath sounds, no respiratory distress Cardiovascular/Chest: normal peripheral pulses, regular rate, rhythm, no edema, no murmur Gastrointestinal/Abdominal: non tender, soft, no organomegaly Back Exam: normal inspection, no CVA tenderness Extremity: normal range of motion, non-tender, normal inspection, no pedal edema, no calf tenderness 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 -Discussed dx, and treatment plan mostly with rest & supportive care. Will Rx Tamiflu 75 mg PO BID, first dose here. -dc home in good condition, return warnings discussed George March MD Billing #[id number] - Results/Orders Results/Orders: 07/02/19 09:20 STREP A SCREEN CULTURE Stat 07/02/19 09:44 Oseltamivir Capsule [Tamiflu] 75 mg PO ONCE ONE Laboratory Results - last 24 hr 07/02/19 09:20 Group A Strep Rapid Negative Departure - Departure Clinical Impression: Influenza B Time of Disposition: 09:45 Disposition: Discharge to Home or Self Care Condition: Fair Departure Forms: ED Discharge - Work Release Instructions: Flu, Adult (DC) Referrals: Adam Cuellar MD [Primary Care Provider] - 1-2 Weeks Prescriptions: Oseltamivir Capsule [Tamiflu] 75 mg PO BID 5 Days #10 capsule Home Medications: Ambulatory Orders Citalopram Hydrobromide [Citalopram] 10 mg PO DAILY 05/25/18 Cetirizine HCl [ZyrTEC] 10 mg PO DAILY 08/25/18 Fluticasone Furoate [Flonase Sensimist] 1 spray OBDULIO PRN 03/19/19 Hydroxyzine HCl 10 mg PO Q6H 03/19/19 Montelukast [Singulair] 10 mg PO DAILY 03/19/19 Pramipexole Dihydrochloride [Mirapex] 0.125 mg PO BEDTIME 03/19/19 Ranitidine HCl [Ranitidine 75] 75 mg PO PRN 03/19/19 Triamcinolone 0.1% Oint [Kenalog 0.1% Ointment] 1 applic TOP PRN 03/19/19 Nitrofurantoin Monohydrate Mac [Macrobid] 100 mg PO BID #10 capsule 05/30/19 Oseltamivir Capsule [Tamiflu] 75 mg PO BID 5 Days #10 capsule 07/02/19
[2019-07-02 09:25] VITALS: BP 103/89; TEMP 99.2; O2SAT 96
[2019-07-02] MEDS: OSELTAMIVIR 75 MG CAP PO ONE (09:46)
== END 2019-07-02 09:58 | disposition home or self-care (01) ==
LOC: ER 08:55
DX: J10.1 Influenza due to other identified influenza virus with other respiratory manifestations (principal); F32.9 Major depressive disorder, single episode, unspecified; M31.31 Wegener's granulomatosis with renal involvement; Z79.899 Other long term (current) drug therapy; Z88.1 Allergy status to other antibiotic agents; Z88.6 Allergy status to analgesic agent; Z92.21 Personal history of antineoplastic chemotherapy

== ENCOUNTER 2019-07-07 07:27 | Emergency (ER) | payer SELFPAY ==
--- NOTE | 2019-07-07 07:35 | ED.PDOC ---
History of Present Illness - General Stated Complaint: sore throat Time Seen by Provider: 07/07/19 07:31 Source: patient, RN notes reviewed, Vital Signs reviewed Exam Limitations: no limitations - History of Present Illness Initial Comments: this is a 34-year-old female who presents to the ED with complaints of sore throat. It has been hurting for the last several days. She is on her last day of Tamiflu after being diagn with influenza B earlier this week. He denies having fever in the last 2 day She has not been taking anything for her sore throat. She did have a strep screen on Tuesday that was negative. Patient now has a nonproductive cough. Myalgias have improved. She did receive a flu shot earlier this year. Allergies/Adverse Reactions: Allergies Piperacillin [From Zosyn] Allergy (Verified 07/02/19 09:26) Tazobactam [From Zosyn] Allergy (Verified 07/02/19 09:26) NSAIDs Adverse Reaction (Verified 03/19/19 07:05) Home Medications: Ambulatory Orders Citalopram Hydrobromide [Citalopram] 10 mg PO DAILY 05/25/18 Cetirizine HCl [ZyrTEC] 10 mg PO DAILY 08/25/18 Fluticasone Furoate [Flonase Sensimist] 1 spray OBDULOI PRN 03/19/19 Hydroxyzine HCl 10 mg PO Q6H 03/19/19 Montelukast [Singulair] 10 mg PO DAILY 03/19/19 Pramipexole Dihydrochloride [Mirapex] 0.125 mg PO BEDTIME 03/19/19 Ranitidine HCl [Ranitidine 75] 75 mg PO PRN 03/19/19 Triamcinolone 0.1% Oint [Kenalog 0.1% Ointment] 1 applic TOP PRN 03/19/19 Nitrofurantoin Monohydrate Mac [Macrobid] 100 mg PO BID #10 capsule 05/30/19 Oseltamivir Capsule [Tamiflu] 75 mg PO BID 5 Days #10 capsule 07/02/19 Lidocaine HCl (Mouth-Throat) [Lidocaine Viscous] 5 ml MT Q6HR #3 oz 07/07/19 Review of Systems - Review of Systems Constitutional: States: no symptoms reported EENTM: States: nose congestion, throat pain. Denies: ear pain, ear discharge, throat swelling, mouth pain, mouth swelling Respiratory: States: cough. Denies: short of breath, stridor, wheezing Cardiology: States: no symptoms reported Gastrointestinal/Abdominal: States: no symptoms reported Genitourinary: States: no symptoms reported Musculoskeletal: States: no symptoms reported Skin: States: no symptoms reported Neurological: States: no symptoms reported All other Systems: Reviewed and Negative Past Medical History (General) - Patient Medical History Hx Seizures: No Hx Stroke: No Hx Dementia: No Hx Asthma: No Hx of COPD: No Hx Cardiac Disorders: No Hx Congestive Heart Failure: No Hx Pacemaker: No Hx Hypertension: No Hx Thyroid Disease: No Hx Diabetes: No Hx Gastroesophageal Reflux: No 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 Adwoa GPA Hx Cancer: No Hx of HIV: No Hx Hepatitis C: No Hx MRSA: No - Vaccination History Hx Tetanus, Diphtheria Vaccination: Yes Hx Influenza Vaccination: Yes Hx Pneumococcal Vaccination: No - Social History Hx Tobacco Use: No Hx Chewing Tobacco Use: No Hx Alcohol Use: No Hx Substance Use: No Hx Substance Use Treatment: No Hx Depression: Yes Hx Physical Abuse: No Hx Emotional Abuse: No Hx Suspected Abuse: No - Female History Hx Last Menstrual Period: 05/21/19 Patient : No Family Medical History - Family History Mother Family History: No Known Living Status: Still Living Hx Family Hypertension: Yes Physical Exam - Physical Exam General Appearance: Alert, No apparent distress, Well Developed, Well Groomed, Well Hydrated, Well Nourished Eye Exam: bilateral normal Ear Exam: bilateral ear: auricle normal, canal normal, TM normal Nasal Exam: normal inspection Throat Exam: normal mouth inspection - mild erythema noted with postnasal drip,no exudates no tonsillar hypertrophy Neck: non-tender, full range of motion, supple, normal inspection, trachea midline Cardiovascular/Respiratory: regular rate, rhythm, no M/R/G, normal peripheral pulses, no JVD, normal breath sounds, no respiratory distress Abdominal Exam: non-tender 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 We will treat with symptomatic care. Complete Tamiflu. - Results/Orders Results/Orders: Laboratory Tests 07/07/19 07:59 Group A Strep Rapid Negative Departure - Departure Clinical Impression: Pharyngitis, Influenza B Time of Disposition: 08:14 Disposition: Discharge to Home or Self Care Condition: Good Instructions: Viral Pharyngitis Referrals: Adam Cuellar MD [Primary Care Provider] - 1-2 Weeks Prescriptions: Lidocaine HCl (Mouth-Throat) [Lidocaine Viscous] 5 ml MT Q6HR #3 oz Home Medications: Ambulatory Orders Citalopram Hydrobromide [Citalopram] 10 mg PO DAILY 05/25/18 Cetirizine HCl [ZyrTEC] 10 mg PO DAILY 08/25/18 Fluticasone Furoate [Flonase Sensimist] 1 spray OBDULIO PRN 03/19/19 Hydroxyzine HCl 10 mg PO Q6H 03/19/19 Montelukast [Singulair] 10 mg PO DAILY 03/19/19 Pramipexole Dihydrochloride [Mirapex] 0.125 mg PO BEDTIME 03/19/19 Ranitidine HCl [Ranitidine 75] 75 mg PO PRN 03/19/19 Triamcinolone 0.1% Oint [Kenalog 0.1% Ointment] 1 applic TOP PRN 03/19/19 Nitrofurantoin Monohydrate Mac [Macrobid] 100 mg PO BID #10 capsule 05/30/19 Oseltamivir Capsule [Tamiflu] 75 mg PO BID 5 Days #10 capsule 07/02/19 Lidocaine HCl (Mouth-Throat) [Lidocaine Viscous] 5 ml MT Q6HR #3 oz 07/07/19 Additional Instructions: take medication as prescribed. Complete Tamiflu. If any worsening of symptoms follow-up with PCP or return to ER for further evaluation.
[2019-07-07 07:37] VITALS: TEMP 97.6; O2SAT 99
[2019-07-07 08:33] VITALS: BP 120/77
== END 2019-07-07 08:36 | disposition home or self-care (01) ==
LOC: ER 07:27
DX: J10.1 Influenza due to other identified influenza virus with other respiratory manifestations (principal); F32.9 Major depressive disorder, single episode, unspecified; M31.30 Wegener's granulomatosis without renal involvement; Z88.1 Allergy status to other antibiotic agents; Z88.6 Allergy status to analgesic agent; Z79.899 Other long term (current) drug therapy

== ENCOUNTER 2019-08-27 23:11 | Emergency (ER) | payer SELFPAY ==
[2019-08-27 23:27] VITALS: TEMP 98.2
[2019-08-27] MEDS ORDERED: ERYTHROMYCIN OPHTH OINT 1 APPLIC RIGHT_EYE ONE (23:28)
--- NOTE | 2019-08-27 23:31 | ED.PDOC ---
History of Present Illness - General Chief Complaint: Eye Problems Stated Complaint: redness, tearing to right eye Time Seen by Provider: 08/27/19 23:28 Source: patient Exam Limitations: no limitations - History of Present Illness Initial Comments: The patient is a 34-year-old female presents emergency room secondary to 4 days of what appears to be a mild conjunctivitis of the right eye. Minimal pain. Mild dryness and itchiness. Minimal discharge in the morning. No fever. No real vision changes. She does have mild photophobia. Mild glaring. No trauma. She does take immunosuppressants. She does take antihistamines. This is the winter so heaters are going for last as well. No evidence of increased pressure. Visual acuity is intact. Extraocular movements are intact. No proptosis. Timing/Duration: other - 3 to 4 days Severity: mild Improving Factors: nothing Worsening Factors: nothing Associated Symptoms: denies symptoms Allergies/Adverse Reactions: Allergies Piperacillin [From Zosyn] Allergy (Verified 07/02/19 09:26) Tazobactam [From Zosyn] Allergy (Verified 07/02/19 09:26) NSAIDs Adverse Reaction (Verified 03/19/19 07:05) Home Medications: Ambulatory Orders Citalopram Hydrobromide [Citalopram] 10 mg PO DAILY 05/25/18 Cetirizine HCl [ZyrTEC] 10 mg PO DAILY 08/25/18 Fluticasone Furoate [Flonase Sensimist] 1 spray OBDULIO PRN 03/19/19 Hydroxyzine HCl 10 mg PO Q6H 03/19/19 Montelukast [Singulair] 10 mg PO DAILY 03/19/19 Pramipexole Dihydrochloride [Mirapex] 0.125 mg PO BEDTIME 03/19/19 Ranitidine HCl [Ranitidine 75] 75 mg PO PRN 03/19/19 Review of Systems - Review of Systems Constitutional: States: no symptoms reported EENTM: States: see HPI, nose congestion - Chronic Respiratory: States: no symptoms reported Cardiology: States: no symptoms reported Gastrointestinal/Abdominal: States: no symptoms reported Genitourinary: States: no symptoms reported Musculoskeletal: States: no symptoms reported Skin: States: no symptoms reported Neurological: States: no symptoms reported Endocrine: States: no symptoms reported All other Systems: No Change from Baseline Past Medical History (General) - Patient Medical History Hx Seizures: No Hx Stroke: No Hx Dementia: No Hx Asthma: No Hx of COPD: No Hx Cardiac Disorders: No Hx Congestive Heart Failure: No Hx Pacemaker: No Hx Hypertension: No Hx Thyroid Disease: No Hx Diabetes: No Hx Gastroesophageal Reflux: No 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 Hx Cancer: No Hx of HIV: No Hx Hepatitis C: No Hx MRSA: No - Vaccination History Hx Tetanus, Diphtheria Vaccination: Yes Hx Influenza Vaccination: Yes Hx Pneumococcal Vaccination: No - Social History Hx Tobacco Use: No Hx Chewing Tobacco Use: No Hx Alcohol Use: No Hx Substance Use: No Hx Substance Use Treatment: No Hx Depression: Yes Hx Physical Abuse: No Hx Emotional Abuse: No Hx Suspected Abuse: No - Female History Hx Last Menstrual Period: 05/21/19 Patient : No Family Medical History - Family History Mother Family History: No Known Living Status: Still Living Hx Family Hypertension: Yes Physical Exam - Physical Exam General Appearance: Alert, Comfortable, No apparent distress Eye Exam: right normal - Conjunctivitis. No obvious corneal abrasion. Pupils are equally round and reactive to light. Extraocular movements are intact. Ears, Nose, Throat: hearing grossly normal, normal pharynx Neck: full range of motion, supple Respiratory: no respiratory distress, no accessory muscle use Cardiovascular/Chest: normal peripheral pulses, no edema Peripheral Pulses: dorsalis pedis,right: 2+, dorsalis pedis,left: 2+ Gastrointestinal/Abdominal: other - Obese Rectal Exam: deferred Extremity: normal range of motion, non-tender, normal capillary refill Neurologic: rnp II-XII nml as tested, alert, normal mood/affect, oriented x 3 Skin Exam: normal color Comments: Vital Signs - 24 hr 08/27/19 23:24 Temperature 98.2 F Pulse Rate [ 79 Right] Respiratory 18 Rate Blood Pressure 138/90 [Left Arm] O2 Sat by Pulse 99 Oximetry Progress - Progress Progress: 08/27/19 23:31 The patient is a 34-year-old female presented emergency room with what appears to be a mild conjunctivitis of the right eye. While this is much more likely viral conjunctivitis or dry eye, the patient will be covered for the possibility of a bacterial conjunctivitis with erythromycin ointment. This will also add a moisture barrier. The patient needs to vegetable picker rewetting drops and use them in between the eye ointment. After she is done with this regimen she needs to use Systane drops to each eye before she goes to bed each night to pre vent drying. ER warnings are given. Keep routine follow-up with primary care doctor otherwise. nic [email or web address] [id number] Departure - Departure Clinical Impression: Conjunctivitis Qualifiers: Conjunctivitis type: acute Acute conjunctivitis type: unspecified Laterality: right Qualified Code(s): H10.31 - Unspecified acute conjunctivitis, right eye Disposition: Discharge to Home or Self Care Condition: Fair Departure Forms: ED Discharge - Pt. Copy, Patient Portal Self Enrollment Diet: regular diet Activity: increase activity as tolerated Referrals: Adam Cuellar MD [Primary Care Provider] - 1-2 Weeks Home Medications: Ambulatory Orders Citalopram Hydrobromide [Citalopram] 10 mg PO DAILY 05/25/18 Cetirizine HCl [ZyrTEC] 10 mg PO DAILY 08/25/18 Fluticasone Furoate [Flonase Sensimist] 1 spray OBDULIO PRN 03/19/19 Hydroxyzine HCl 10 mg PO Q6H 03/19/19 Montelukast [Singulair] 10 mg PO DAILY 03/19/19 Pramipexole Dihydrochloride [Mirapex] 0.125 mg PO BEDTIME 03/19/19 Ranitidine HCl [Ranitidine 75] 75 mg PO PRN 03/19/19 Additional Instructions: The patient is a 34-year-old female presented emergency room with what appears to be a mild conjunctivitis of the right eye. While this is much more likely viral conjunctivitis or dry eye, the patient will be covered for the possibility of a bacterial conjunctivitis with erythromycin ointment. This will also add a moisture barrier. The patient needs to vegetable picker rewetting drops and use them in between the eye ointment. After she is done with this regimen she needs to use Systane drops to each eye before she goes to bed each night to prevent drying. ER warnings are given. Keep routine follow-up with primary care doctor otherwise.
[2019-08-27 23:47] VITALS: BP 127/87; O2SAT 100
== END 2019-08-27 23:47 | disposition home or self-care (01) ==
LOC: ER 23:11
DX: H10.31 Unspecified acute conjunctivitis, right eye (principal); F32.9 Major depressive disorder, single episode, unspecified; N18.9 Chronic kidney disease, unspecified; Z79.899 Other long term (current) drug therapy; Z88.1 Allergy status to other antibiotic agents; Z88.6 Allergy status to analgesic agent